=== PATIENT | male | born 1960 | race Caucasian/White ===

== ENCOUNTER 2019-08-23 08:33 | Day surgery (SDC) | payer BC, SELFPAY ==
[2019-08-23 09:01] VITALS: BP 127/97; PULSE 70; RESP 18; TEMP 36.9; O2SAT 97
--- NOTE | 2019-08-23 09:21 | ANES.PREANES ---
Pre-Anesthetic Assessment Pre-Anesthetic Assessment: Height/Weight: Height 1.75 m Weight 0 g Temp Pulse Resp BP Pulse Ox 98.4 F 70 18 127/97 97 08/23/19 09:01 08/23/19 09:01 08/23/19 09:01 08/23/19 09:01 08/23/19 09:01 Proposed Procedure: Operation Date: 08/23/19 10:30 Proposed Procedures p EGD 42760(Not Applicable) - Monico Dai MD Familial anesthetic complications: denies anesthesia complications Was Beta Loan taken within 24 hours: N/A Last intake: Intake Last Liquid Date 08/22/19 Last Liquid Time 18:00 Last Solid Date 08/22/19 Last Solid Time 18:00 Last Intake: 09:23 Social: Social History: No alcohol and No tobacco Exam: Pre-Anes Outpt Exam: alert, oriented x 3, clear to auscultation bilaterally and regular rate & rhythm Airway: Submandibular: WNL Cervical ROM: WNL MP: 2 Additional comments: intact dentition History/ROS: No significant complaints Pulmonary: Pulmonary: None reported CV/HEM: CV/HEM: HTN : : None reported Hepatic: Hepatic: None reported GI: GI: GERD and Hiatus hernia Comments: congtrolled well with meds Metabolic: Metabolic: None reported Musc/skel: Musc/skel: OA/DJD Neuropsych: Neuropsych: Anxiety Anesthetic Plan: ASA status: II Anesthesia: Anesthesia Evaluation Risk of > 500 ml blood loss (7ml/kg in children): No PFSH Anesthesia PFSH: Social History Smoking and tobacco status: never smoked Alcohol intake: current Alcohol intake frequency: holidays/special occasions only Household members: spouse Current occupational status: employed Data Anesthesia Cardiac Studies: No Data to Display
[2019-08-23] MEDS: sodium chloride 0.9% 1,000 ML 30 ML IV (09:23)
--- NOTE | 2019-08-23 10:58 | PM.HPUD ---
H&P update H&P Update: DATE OF SURGERY/PROCEDURE: 08/23/19 DATE H&P PERFORMED: 08/16/19 H&P UPDATE INFORMATION: H&P completed within last 30 days and No changes to prior documentation PLANNED PROCEDURE: Operation Date: 08/23/19 10:30 Proposed Procedures p EGD 15691(Not Applicable) - Monico Dai MD Full H&P Medications/Allergies: Current Medications: Current Medications Generic Name Dose Route Start Last Admin Trade Name Brannonq PRN Reason Stop Dose Admin Sodium Chloride 1,000 mls @ 30 ml s/hr 08/23/19 06:15 08/23/19 09:23 Sodium Chloride 0.9% IV 08/24/19 06:14 30 mls/hr .Q24H NATALIA Administration Perinent History: Medical/Surgical History: Medical History (Updated 08/16/19 @ 15:24 by Monico Dai MD) Diverticulosis (Acute) Gastroparesis (Acute) GERD (gastroesophageal reflux disease) (Chronic) Hiatal hernia (Acute) Hypertension (Acute) Internal hemorrhoids (Acute) Joint pain (Acute) Schatzki's ring (Acute) Family History: Family History (Updated 08/16/19 @ 11:00 by Kinjal Oneal LPN) Father Cancer esophageal Hypertension Grandfather Cancer brain Grandmother Cancer uterine Denies family history of Anesthesia complication Bleeding disorder Social History: Social History Smoking and tobacco status: never smoked Alcohol intake: current Alcohol intake frequency: holidays/special occasions only Household members: spouse Current occupational status: employed
[2019-08-23 11:15] VITALS: BP 121/76; PULSE 65; RESP 10; TEMP 36.9; O2SAT 95
--- NOTE | 2019-08-23 11:20 | ANE.PACU ---
 Inpatient post-anesthesia follow up: Airway intact: Yes Vital signs: Temperature 98.5 F Pulse Rate [Monito r] 65 Respiratory Rate 10 Blood Pressure [Le ft Arm] 121/76 Pulse Oximetry 95 Oxygen Delivery Me thod Nasal Cannula Oxygen Flow Rate 3 Fraction of Inspir ed Oxygen Hydration adequate: Yes Nausea and vomiting: No Pain level: Other Pain level: 0/10 Mental status: Baseline
[2019-08-23 11:27] VITALS: BP 123/68; PULSE 59; RESP 18; O2SAT 97
== END 2019-08-23 11:49 | disposition home or self-care (01) ==
PROVIDERS: Family Provider Nurse Practitioner Family; PCP Registered Nurse; Visit Provider Surgery
PROC: 0DJ08ZZ Inspection of Upper Intestinal Tract, Via Natural or Artificial Opening Endoscopic (ICD-10-PCS; CPT 43235; principal; 2019-08-23 10:30)
DX: K21.9 Gastro-esophageal reflux disease without esophagitis (principal); K29.30 Chronic superficial gastritis without bleeding; I10 Essential (primary) hypertension; Z82.49 Family history of ischemic heart disease and other diseases of the circulatory system; M19.90 Unspecified osteoarthritis, unspecified site
CPT/HCPCS: 43239; 88305; J2704; J7030

== ENCOUNTER 2019-11-20 08:23 | Outpatient (CLI) | payer OTHER, SELFPAY ==
--- NOTE | 2019-11-20 09:00 | CT_ITS ---
WS: [id number] CT LEFT FOOT, NONCONTRAST WITH 3-D. HISTORY: trauma foot Technique: All CT scans at [facility] use at least one of these dose optimization techniq ues: automated exposure control; mA and/or kV adjustment per patient size (includes targeted exams wh ere dose is matched to clinical indication); or iterative reconstruction. DLP: 630.67 mGy-cm. COMPARISON: None available. Very subtle area of increased density between the proximal first and second metatarsals. This could b e small avulsion fracture from the base of the second metatarsal which can be an indicator of underly ing Lisfranc injury indicating injury to the Lisfranc ligament. There is no significant widening appr eciated by CT. No additional fractures are evident. There is mild soft tissue edema. Distal tibia is intact. Talus and calcaneus are normal. Very slight widening of the 3-D imaging betwe en the proximal first and second metatarsals is suspected. CT/CT foot LT wo con* [id number] IMPRESSION: 1. Suspect tiny avulsion fracture between the proximal first and second metata rsals. This may indicate an avulsion fracture related to a Lisfranc injury/spra in. 2. Suggest follow-up with orthopedics/podiatry. Stress radiographic views of t he LEFT foot may be indicated.
== END 2019-11-20 08:24 | disposition home or self-care (01) ==
LOC: RADWPI 08:25
PROVIDERS: Family Provider Nurse Practitioner Family; PCP Registered Nurse; Visit Provider Nurse Practitioner Family
DX: M79.672 Pain in left foot (principal)
CPT/HCPCS: 73700

== ENCOUNTER → 2019-11-21 09:54 | Outpatient (BNVA) | payer OTHER, SELFPAY | PROVIDERS: Family Provider Nurse Practitioner Family; PCP Registered Nurse; Referring Provider Nurse Practitioner Family; Visit Provider Specialist | DX: S93.622A Sprain of tarsometatarsal ligament of left foot, initial encounter (principal); W20.8XXA Other cause of strike by thrown, projected or falling object, initial encounter | CPT/HCPCS: 73630 ==

== ENCOUNTER 2019-11-21 12:23 | Outpatient (CLI) | payer OTHER, SELFPAY | END 2019-11-21 12:24 | disposition home or self-care (01) | LOC: SPT 12:27 | PROVIDERS: Family Provider Nurse Practitioner Family; PCP Registered Nurse; Visit Provider Specialist | DX: Z46.89 Encounter for fitting and adjustment of other specified devices (principal); S93.325D Dislocation of tarsometatarsal joint of left foot, subsequent encounter; X58.XXXD Exposure to other specified factors, subsequent encounter | CPT/HCPCS: L4361 ==

== ENCOUNTER → 2019-12-10 08:55 | Outpatient (BNVA) | payer OTHER, SELFPAY | PROVIDERS: Family Provider Nurse Practitioner Family; PCP Registered Nurse; Visit Provider Specialist | DX: T14.8XXA Other injury of unspecified body region, initial encounter (principal) | CPT/HCPCS: 73630 ==

== ENCOUNTER → 2020-01-28 14:52 | Outpatient (BNVA) | payer OTHER, SELFPAY | PROVIDERS: Family Provider Nurse Practitioner Family; PCP Registered Nurse; Visit Provider Specialist | DX: T14.8XXA Other injury of unspecified body region, initial encounter (principal); S93.622A Sprain of tarsometatarsal ligament of left foot, initial encounter; X58.XXXA Exposure to other specified factors, initial encounter | CPT/HCPCS: 73630 ==

== ENCOUNTER 2020-07-22 13:19 | Outpatient (CLI) | payer BC, SELFPAY ==
--- NOTE | 2020-07-22 13:24 | XR_ITS ---
WS: [id number] RIGHT HAND: 2 VIEW(S) TECHNIQUE: PA and lateral. HISTORY: M19.049 - Primary osteoarthritis, unspecified hand COMPARISON: None available. No acute fracture or dislocation. Mild interphalangeal joint space narrowing. No significant soft tissue prominence. No erosions. XR/XR hand RT 2V [id number] IMPRESSION: Minimal narrowing of the interphalangeal joints. Most likely mild osteoarthriti s.
--- NOTE | 2020-07-22 13:24 | XR_ITS ---
WS: [id number] LEFT HAND: 2 VIEW(S) TECHNIQUE: PA and lateral. HISTORY: M19.049 - Primary osteoarthritis, unspecified hand COMPARISON: None available. No acute fracture or dislocation. Mild narrowing of the interphalangeal joint spaces. No erosions. No soft tissue edema or swelling. No subluxation. XR/XR hand LT 2V [id number] IMPRESSION: Mild osteoarthritis.
== END 2020-07-22 13:20 | disposition home or self-care (01) ==
LOC: RAD 13:22
PROVIDERS: PCP Registered Nurse; Visit Provider Registered Nurse
DX: M19.042 Primary osteoarthritis, left hand (principal)
CPT/HCPCS: 73120

== ENCOUNTER → 2020-07-29 11:22 | Outpatient (BNVA) | payer BC, SELFPAY | PROVIDERS: PCP Registered Nurse; Visit Provider Specialist | DX: R20.0 Anesthesia of skin (principal); G56.02 Carpal tunnel syndrome, left upper limb | CPT/HCPCS: 95910 ==

== ENCOUNTER → 2020-08-13 09:09 | Outpatient (BNVA) | payer BC, SELFPAY | PROVIDERS: PCP Registered Nurse; Visit Provider Registered Nurse | DX: Z00.00 Encounter for general adult medical examination without abnormal findings (principal); I10 Essential (primary) hypertension | CPT/HCPCS: 80048; 80061 ==

== ENCOUNTER → 2020-10-20 09:02 | Outpatient (BNVA) | payer BC, SELFPAY | PROVIDERS: PCP Registered Nurse; Visit Provider Registered Nurse | DX: E78.5 Hyperlipidemia, unspecified (principal) | CPT/HCPCS: 80061 ==

== ENCOUNTER → 2020-12-31 08:23 | Outpatient (BNVA) | payer BC, SELFPAY | PROVIDERS: PCP Registered Nurse; Referring Provider Registered Nurse; Visit Provider Specialist | DX: M77.8 Other enthesopathies, not elsewhere classified (principal) | CPT/HCPCS: 73080 ==

== ENCOUNTER → 2021-11-11 10:47 | Outpatient (BNVA) | payer OTHER, SELFPAY | PROVIDERS: PCP Registered Nurse; Visit Provider Registered Nurse | DX: Z12.5 Encounter for screening for malignant neoplasm of prostate (principal); Z13.6 Encounter for screening for cardiovascular disorders | CPT/HCPCS: 80053; 80061; 85025; G0103 ==

== ENCOUNTER → 2022-02-05 08:36 | Outpatient (BNVA) | payer OTHER, SELFPAY | PROVIDERS: PCP Registered Nurse; Visit Provider Registered Nurse | DX: E78.5 Hyperlipidemia, unspecified (principal) | CPT/HCPCS: 80061 ==

== ENCOUNTER 2022-06-28 16:03 | Outpatient (CLI) | payer OTHER, SELFPAY ==
--- NOTE | 2022-06-28 17:21 | XR_ITS ---
WS: [id number] Exam: XR shoulder LT min 2V* [id number] Date/Time of Exam: 06/28/2022 5:21 PM Reason For Exam: M25.512 - Pain in left shoulder No fracture or dislocation. Soft tissue XR/XR shoulder LT min 2V* [id number] IMPRESSION: 1. Unremarkable left shoulder.
== END 2022-06-28 16:04 | disposition home or self-care (01) ==
PROVIDERS: PCP Registered Nurse; Visit Provider Registered Nurse
DX: M25.512 Pain in left shoulder (principal)
CPT/HCPCS: 73030

== ENCOUNTER 2022-08-25 11:36 | Outpatient (CLI) | payer OTHER, SELFPAY ==
--- NOTE | 2022-08-25 14:30 | MR_ITS ---
WS: [id number] MRI LEFT SHOULDER HISTORY: M25.512 - Pain in left shoulder COMPARISON: LEFT shoulder 06/28/2022 TECHNIQUE: Multiplanar sequences of the shoulder joint are submitted. Mild AC joint arthritis. There is a small amount of edema around the distal clavicle and through the AC ligament. No acute acute fracture. No significant amount of fluid in the subacromial or subdeltoid bursa. No os acromion. Biceps tendon in good position. Small insertion site tear of the supraspinatus tendon without retraction. There is mild tendinopathy in the more proximal supraspinatus tendon. No additional tears. No labral tears are identified. There is mild atrophy of the subscapularis muscle but no tendon tear or retraction. MR/MR shoulder LT wo con* [id number] IMPRESSION: 1. Mild AC joint arthropathy. 2. Small insertion site tear supraspinatus tendon without retraction. 3. Mild tendinopathy distal supraspinatus tendon. 4. Mild atrophy of the subscapularis muscle but no tendon tear identified.
== END 2022-08-25 11:37 | disposition home or self-care (01) ==
PROVIDERS: PCP Registered Nurse; Visit Provider Registered Nurse
DX: M12.812 Other specific arthropathies, not elsewhere classified, left shoulder (principal); M75.102 Unspecified rotator cuff tear or rupture of left shoulder, not specified as traumatic
CPT/HCPCS: 73221

== ENCOUNTER → 2022-09-01 13:11 | Outpatient (BNVA) | payer OTHER, SELFPAY | PROVIDERS: PCP Registered Nurse; Referring Provider Registered Nurse; Visit Provider Specialist | DX: M75.92 Shoulder lesion, unspecified, left shoulder (principal); M19.012 Primary osteoarthritis, left shoulder; S46.012A Strain of muscle(s) and tendon(s) of the rotator cuff of left shoulder, initial encounter; X50.9XXA Other and unspecified overexertion or strenuous movements or postures, initial encounter | CPT/HCPCS: 73030 ==

== ENCOUNTER → 2023-03-23 08:34 | Outpatient (BNVA) | payer OTHER, SELFPAY | PROVIDERS: PCP Registered Nurse; Visit Provider Registered Nurse | DX: I10 Essential (primary) hypertension (principal); E78.5 Hyperlipidemia, unspecified; Z12.5 Encounter for screening for malignant neoplasm of prostate | CPT/HCPCS: 80053; 80061; 85025; G0103 ==

== ENCOUNTER 2023-05-19 07:45 | Day surgery (SDC) | payer OTHER, SELFPAY ==
[2023-05-17 10:11] VITALS: BMI 25.8
--- NOTE | 2023-05-19 06:25 | P.HP_ITS ---
Same Day Surgery H&P Indication for Procedure/HPI DATE OF PROCEDURE: May 19, 2023 CHIEF COMPLAINT/INDICATIONFOR SURGICAL PROCEDURE: need for screening colonoscopy PREOP DIAGNOSIS: encounter for screening colonoscopy PLANNED PROCEDURE: Operation Date: 05/19/23 09:00 Proposed Procedures p Colonoscopy 33678,Z12.11(Not Applicable) - Iain Miller MD Medications/Allergies* Home Medications Medication Instructions Recorded Confirmed Type aspirin 81 mg chewable tablet 81 mg PO DAILY 08/16/19 05/17/23 History xgctciyc-cgdhlspv-xhhhi acid 400 1 tab PO DAILY 08/16/19 05/17/23 History mcg-vit K 20 mcg-lycop 300 mcg tablet (One-A-Day Men's Multivitamin) Allergies/Adverse Reactions Allergy/AdvReac Type Severity Reaction Status Date / Time lovastatin Allergy ADR-Cramping Verified 04/05/23 07:53 of the Muscles Pertinent History/Comorbid Conditions* Medical History (Updated 04/05/23 @ 08:10 by Iain Miller MD) Diverticulosis Esophagitis GERD (gastroesophageal reflux disease) Hypertension Internal hemorrhoids Surgical History (Updated 09/07/19 @ 11:32 by Monico Dai MD) History of esophagogastroduodenoscopy (EGD) 2017 08/2019: esophagitis, path: chronic gastritis History of rectal surgery Hx of cholecystectomy Hx of circumcision S/P colonoscopy 2019 repeat in 5 years Family History (Updated 04/05/23 @ 07:58 by ONELIA Andrews) Cancer Father esophageal Grandfather brain Grandmother uterine Family/Other Colon cancer- Aunt Hypertension Father Denies family history of Anesthesia complication Bleeding disorder Social History Smoking and tobacco status: never smoked Alcohol intake: current Alcohol intake frequency: holidays/special occasions only Substance/Drug Use: never Adopted: No Caregiver/support person: No Lives independently: Yes Household members: spouse Housing: House Marital status: Highest education level completed: High School Graduate Current occupational status: employed Current occupational exposures/hazards: No Pets and animals: No Leisure activites: hunting and fishing Sexually active: Yes Do you think of yourself as: Straight/Heterosexual Current gender identity: Female Hanna/Presybeterian: Uatsdin Special hanna needs: No Agree to transfusion: No Financial difficulty paying for basics: Decline to Answer Pertinent Exam Findings alert, oriented x 3, clear to auscultation bilaterally and regular rate & rhythm Recommendations Surgery/Procedure today Coding Level of Care Code Acute Code for Chg Fwd Diagnoses
[2023-05-19 08:01] VITALS: BP 129/87; PULSE 75; RESP 18; TEMP 36.6; O2SAT 97
[2023-05-19] MEDS: sodium chloride 0.9% 1,000 ML 30 ML IV (08:04)
--- NOTE | 2023-05-19 08:10 | P.ANESASSM_ITS ---
Pre-Anesthetic Assessment Height/Weight: Height 1.75 m Weight 79.379 kg Temp Pulse Resp BP Pulse Ox O2 Del Method 97.9 F 75 18 129/87 97 Room Air 05/19/23 08:01 05/19/23 08:01 05/19/23 08:01 05/19/23 08:01 05/19/23 08:01 05/19/23 08:01 Preop Diagnosis: encounter for screening colonoscopy Operation Date: 05/19/23 09:00 Proposed Procedures p Colonoscopy 44079,Z12.11(Not Applicable) - Iain Miller MD Was Beta Loan taken within 24 hours: N/A Was Clonidine taken within 24 hours: N/A Last intake: Intake Last Liquid Date 05/18/23 Last Liquid Time 21:00 Last Solid Date 05/17/23 Last Solid Time 17:00 Exam alert and oriented x 3 Airway Submandibular: within normal limits Cervical ROM: within normal limits Mallampati: Class II Dentition: full History/ROS No significant history except as noted Pulmonary Sleep Apnea CV/HEM Hypertension None reported Hepatic None reported GI Gastroesophageal Reflux Disease Metabolic Hyperlipidemia [facility] [place] None reported Neuropsych None reported Anesthetic Plan ASA status: 2 Anesthesia: Anesthesia Evaluation and MAC Risk of > 500 ml blood loss (7ml/kg in children): No Medications/Allergies Home Medications Medication Instructions Recorded Confirmed Last Taken Type aspirin 81 mg chewable tablet 81 mg PO DAILY 08/16/19 05/17/23 05/13/23 History xtmyzoxn-pnevynbe-vlizw acid 400 1 tab PO DAILY 08/16/19 05/17/23 05/17/23 History mcg-vit K 20 mcg-lycop 300 mcg tablet (One-A-Day Men's Multivitamin) fluticasone propionate 50 1 spray intranasal DAILY #16 grams 10/07/22 05/17/23 05/14/23 Rx mcg/actuation nasal spray,suspension (Flonase Allergy Relief) acyclovir 800 mg tablet 800 mg PO BID PRN recurrent mouth 11/22/22 05/17/23 Unknown Rx ulcers 15 days #30 tabs olmesartan 20 mg tablet See Rx Instructions .Route 05/02/23 05/17/23 05/17/23 Rx .COMPLEX #90 tabs pantoprazole 40 mg tablet,delayed See Rx Instructions .Route 05/02/23 05/17/23 05/17/23 Rx release .COMPLEX #90 tabs sertraline 50 mg tablet See Rx Instructions .Route 05/02/23 05/17/23 05/17/23 Rx .COMPLEX #90 tabs Allergies Allergy/AdvReac Type Severity Reaction Status Date / Time lovastatin Allergy ADR-Cramping Verified 05/19/23 07:54 of the Muscles Current Medications Generic Name Dose Route Start Last Admin Trade Name Freq PRN Reason Stop Dose Admin Sodium Chloride 1,000 mls @ 30 mls/hr 05/19/23 08:00 05/19/23 08:04 Sodium Chloride 0.9% IV 05/20/23 07:59 30 mls/hr .Q24H NATALIA Administration PFSH Anesthesia Medical History Diverticulosis Esophagitis GERD (gastroesophageal reflux disease) Hypertension Internal hemorrhoids Surgical History History of esophagogastroduodenoscopy (EGD) 2017 08/2019: esophagitis, path: chronic gastritis History of rectal surgery Hx of cholecystectomy Hx of circumcision S/P colonoscopy 2019 repeat in 5 years Family History (Updated 04/05/23 @ 07:[address]) Father Cancer esophageal Hypertension Grandfather Cancer brain Grandmother Cancer uterine Family/Other Cancer Colon cancer- Aunt Denies family history of Anesthesia complication Bleeding disorder Social History Smoking and tobacco status: never smoked Alcohol intake: current Alcohol intake frequency: holidays/special occasions only Substance/Drug Use: never Adopted: No Caregiver/support person: No Lives independently: Yes Household members: spouse Housing: House Marital status: Highest education level completed: High School Graduate Current occupational status: employed Current occupational exposures/hazards: No Pets and animals: No Leisure activites: hunting and fishing Sexually active: Yes Do you think of yourself as: Straight/Heterosexual Current gender identity: Female Hanna/Baptist: Caodaism Special hanna needs: No Agree to transfusion: No Financial difficulty paying for basics: Decline to Answer Data Anesthesia Cardiac Studies: No Data to Display
[2023-05-19 09:24] VITALS: BP 86/64; PULSE 63; RESP 16; O2SAT 95
[2023-05-19 09:50] VITALS: BP 114/84; PULSE 51; RESP 16; O2SAT 94
--- NOTE | 2023-05-19 10:10 | ANE.PACU2 ---
Inpatient post-anesthesia follow up: Airway intact: Yes Vital signs: Temperature 97.9 F Pulse Rate 51 Respiratory Rate 16 Blood Pressure 114/84 Pulse Oximetry 94 Oxygen Delivery Me thod Room Air Oxygen Flow Rate 2 Fraction of Inspir ed Oxygen Hydration adequate: Yes Nausea and vomiting: No Pain level: 1 Mental status: Baseline
== END 2023-05-19 10:20 | disposition home or self-care (01) ==
PROVIDERS: PCP Registered Nurse; Visit Provider Surgery
PROC: 0DJD8ZZ Inspection of Lower Intestinal Tract, Via Natural or Artificial Opening Endoscopic (ICD-10-PCS; CPT 45378; principal; 2023-05-19 09:00)
DX: Z12.11 Encounter for screening for malignant neoplasm of colon (principal); D12.0 Benign neoplasm of cecum; K57.30 Diverticulosis of large intestine without perforation or abscess without bleeding; Z79.82 Long term (current) use of aspirin; I10 Essential (primary) hypertension; G47.30 Sleep apnea, unspecified; K21.9 Gastro-esophageal reflux disease without esophagitis; E78.5 Hyperlipidemia, unspecified
CPT/HCPCS: 45385; 88305; J2704; J7030

== ENCOUNTER 2023-06-27 16:00 | Outpatient (CLI) | payer OTHER, SELFPAY | END 2023-06-27 16:01 | disposition home or self-care (01) | LOC: SLEEP 06-28 11:30 | PROVIDERS: PCP Registered Nurse; Visit Provider Registered Nurse | DX: G47.33 Obstructive sleep apnea (adult) (pediatric) (principal) | CPT/HCPCS: G0399 ==

== ENCOUNTER 2023-09-09 07:45 | Emergency (ER) | payer OTHER, SELFPAY ==
[2023-09-09 07:46] VITALS: BP 159/93; PULSE 83; RESP 15; TEMP 36.7; O2SAT 98
--- NOTE | 2023-09-09 07:50 | XR_ITS ---
WS: [id number] XR lumbar spine 2-3V* [id number] REASON FOR EXAM: low back pain FINDINGS: Mild rotatory scoliosis convex left. No significant compression deformity of the lumbar vertebrae. Disc spaces are intact and relatively well preserved. Mild anterolisthesis of L4 on L5. IMPRESSION: No acute abnormality. Minimal degenerative spondylosis.
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
[2023-09-09] MEDS: naproxen 500 mg Tablet PO (08:00)
[2023-09-09 08:42] VITALS: BP 127/88; PULSE 77; O2SAT 97
== END 2023-09-09 08:43 | disposition home or self-care (01) ==
PROVIDERS: Emergency Provider Emergency Medicine; PCP Registered Nurse
DX: S39.012A Strain of muscle, fascia and tendon of lower back, initial encounter (principal); Z79.82 Long term (current) use of aspirin; I10 Essential (primary) hypertension; V89.2XXA Person injured in unspecified motor-vehicle accident, traffic, initial encounter
CPT/HCPCS: 72100; 99283

== ENCOUNTER 2023-09-23 16:12 | Outpatient (CLI) | payer OTHER, SELFPAY ==
--- NOTE | 2023-09-23 16:45 | MR_ITS ---
WS: [id number] MRI LUMBAR SPINE NONCONTRAST HISTORY: M54.16 - Radiculopathy, lumbar region COMPARISON: None available. TECHNIQUE: Sagittal and axial multisequence imaging is submitted. Moderate cervical spondylosis. There is narrowing of the central canal in the cervical spine at C3-4, C4-5 and C5-6. Disc bases are narrowed throughout the thoracic spine. No cord compression. Mild ante rior wedging of T7, T8 and T9. No marrow edema to suggest acute fractures. Normal lumbar alignment. Disc spaces are narrowed and desiccated. There is very slight anterior wedgi ng of L1. No fracture. Conus terminates normally at L1-2 disc level. L1-L2: No stenosis. Mild facet arthritis. L2-L3: Mild bilateral facet joint arthritis and disc bulging. No stenosis. L3-L4: Mild annular disc bulging and osteophytic ridging. Mild bilateral ligamentum flavum and facet joint arthritis. There is mild bilateral foraminal narrowing due to combination of osteophytes, disc and facet disease. Mild central and bilateral subarticular recess encroachment. L4-L5: Diffuse annular disc bulging encroaching upon the ventral thecal sac. There is asymmetric encr oachment greatest to the RIGHT. Marked ligamentum flavum and facet arthritis. Fluid in the facet join ts bilaterally. Moderate central, bilateral subarticular recess and mild foraminal stenosis. Slightly greater disc encroachment upon the traversing RIGHT L5 nerve root. L5-S1: Mild annular disc bulging and facet joint arthritis. No high-grade stenosis. There is a small 8 mm facet joint cyst on the LEFT. LEFT renal pelvis is very slightly dilated. This may be due to an extrarenal pelvis but this was not present on the study of 2017 CT. Exophytic mass needs to be excluded. IMPRESSION: 1. L4-5: Moderate central, bilateral subarticular recess and mild foraminal stenosis. The most signi ficant nerve root encroachment is on the traversing RIGHT L5 nerve root. 2. Advanced facet joint arthritis at L4-5 with fluid in the facet joints and edema. 3. L3-4: Mild central and bilateral subarticular recess encroachment. 4. A small portion of the LEFT kidney is included. There is an abnormal configuration of the superio r pole of the kidney which needs to be further evaluated. This may be an extrarenal pelvis but was no t present on the study from 2017. Recommend ultrasound evaluation of the LEFT kidney.
== END 2023-09-23 16:13 | disposition home or self-care (01) ==
LOC: RAD 16:12
PROVIDERS: PCP Registered Nurse; Visit Provider Registered Nurse
DX: M47.26 Other spondylosis with radiculopathy, lumbar region (principal); M48.061 Spinal stenosis, lumbar region without neurogenic claudication; R93.422 Abnormal radiologic findings on diagnostic imaging of left kidney
CPT/HCPCS: 72148

== ENCOUNTER 2023-10-06 13:02 | Outpatient (CLI) | payer OTHER, SELFPAY ==
--- NOTE | 2023-10-06 13:45 | US_ITS ---
WS: [id number] RENAL ULTRASOUND HISTORY: R39.9 - Unspecified symptoms and signs involving the madelyn... COMPARISON: MRI 09/23/2023 TECHNIQUE: 2-D and color Doppler imaging of the kidney submitted. Right kidney: 10.9 cm x 5.6 cm x 5.5 cm. Cortex: 1.2 cm Normal echogenicity with no hydronephrosis or mass. Left kidney: 11.6 cm x 6.1 cm x 5.8 cm. Cortex: 1.3 cm Normal echogenicity with no hydronephrosis or mass. The abnormal configuration of the LEFT kidney is not identified by ultrasound. There is no extrarenal pelvis or mass. Kidney is well visualized. Aorta: Normal. Urinary Bladder: Normal distention. IMPRESSION: 1. No LEFT renal abnormality is identified by ultrasound. The kidney is well visualized. There is no mass. The abnormality seen on the recent MRI may've been adjacent bowel. 2. Negative RIGHT kidney.
== END 2023-10-06 13:03 | disposition home or self-care (01) ==
LOC: RAD 13:02
PROVIDERS: PCP Registered Nurse; Visit Provider Registered Nurse
DX: R39.9 Unspecified symptoms and signs involving the genitourinary system (principal)
CPT/HCPCS: 76770

== ENCOUNTER → 2023-10-20 12:55 | Outpatient (BNVA) | payer OTHER, SELFPAY | PROVIDERS: PCP Registered Nurse; Referring Provider Registered Nurse; Visit Provider Orthopaedic Surgery | DX: M54.16 Radiculopathy, lumbar region (principal); M48.062 Spinal stenosis, lumbar region with neurogenic claudication | CPT/HCPCS: 72110 ==

== ENCOUNTER 2023-12-02 11:43 | Outpatient (CLI) | payer OTHER, SELFPAY ==
--- NOTE | 2023-12-02 13:45 | MR_ITS ---
WS: [id number] MRI CERVICAL SPINE NONCONTRAST HISTORY: Chronic since 2 months ago. Neck pain and LEFT muscle stiffness. COMPARISON: None available. Technique: Multiplanar, multisequence noncontrast imaging of the cervical spine. Mild RIGHT curvature cervical spine. Less than 2 mm retrolisthesis of C3 and C5. Disc spaces are all narrowed. No fracture or acute marrow edema. Signal within the cervical cord is normal. Visualized posterior fossa is unremarkable. Craniocervical junction, C1 and C2 relationship, odontoid process and soft tissues are normal. C2-C3: Normal. C3-C4: Mild annular disc bulging and osteophytic ridging. Mild disc and osteophyte encroachment upon the ventral thecal sac. Moderate bilateral foraminal stenosis. Bilateral facet joint arthritis, LEFT greater than RIGHT. There is mild increased T2 signal in the LEFT facets at the C3-4 and C4-5 level w ith a small amount of edema. C4-C5: Mild annular disc bulging and osteophytic ridging contacting the ventral thecal sac. Bilateral facet joint arthritis, LEFT greater than RIGHT. Increased T2 signal in the LEFT facet joints. There is also some edema posterior to the facet joint. Mild central and bilateral foraminal stenosis. C5-C6: Mild osteophytic ridging with annular disc bulging. Moderate central and bilateral foraminal s tenosis due to disc and osteophyte disease. C6-C7: Mild annular disc bulging and osteophytic ridging. Moderate bilateral foraminal stenosis. Mild facet arthritis. C7-T1: Normal. Cystic mass in the expected location of the RIGHT thyroid measures 9 mm. IMPRESSION: 1. Multilevel degenerative disc and facet disease. 2. Increased T2 signal in the LEFT facet joints and the periarticular soft tissues at C3-4 and C4-5. This may be posttraumatic and related to the recent injury or due to synovitis and facet joint arthr opathy. No fractures are identified or dislocation. 3. C3-4 : Moderate bilateral foraminal stenosis and mild central stenosis. 4. C4-5: Mild central and bilateral foraminal stenosis. 5. C5-6: Moderate central and bilateral foraminal stenosis due to disc and osteophyte disease. 6. C6-7: Moderate bilateral foraminal stenosis.
== END 2023-12-02 11:44 | disposition home or self-care (01) ==
LOC: RAD 11:43
PROVIDERS: PCP Registered Nurse; Visit Provider Nurse Practitioner Family
DX: S16.1XXA Strain of muscle, fascia and tendon at neck level, initial encounter (principal); V89.2XXA Person injured in unspecified motor-vehicle accident, traffic, initial encounter; M47.812 Spondylosis without myelopathy or radiculopathy, cervical region; M48.02 Spinal stenosis, cervical region
CPT/HCPCS: 72141

== ENCOUNTER → 2023-12-06 10:39 | Outpatient (BNVA) | payer OTHER, SELFPAY | PROVIDERS: PCP Registered Nurse; Visit Provider Nurse Practitioner Family | DX: E04.1 Nontoxic single thyroid nodule (principal) | CPT/HCPCS: 84439; 84443 ==

== ENCOUNTER 2023-12-14 08:07 | Outpatient (CLI) | payer OTHER, SELFPAY ==
--- NOTE | 2023-12-14 09:15 | US_ITS ---
WS: [id number] ULTRASOUND THYROID TECHNIQUE: Ultrasound of the thyroid. CLINICAL INFORMATION: E04.1 - Nontoxic single thyroid nodule COMPARISON: None. FINDINGS: Thyroid: Right and left thyroid lobes are normal in size and echotexture. Complex heterogeneous cystic and solid RIGHT mid thyroid nodule measuring 1.2 x 1.1 x 1.6 cm No LEFT thyroid nodules. Right thyroid lobe: 1.9 cm x 2.0 cm x 2.2 cm Left thyroid lobe: 3.9 cm x 1.5 cm x 1.4 cm. Isthmus: 0.2 mm. Cervical lymphadenopathy: None. US/US thyroid [id number] IMPRESSION: Complex RIGHT mid thyroid nodule measuring 1.2 x 1.1 x 1.6 cm Recommend 12-month follow-up. TIRADS Category 3: Mildly suspicious (total points = 3) FNA if e2.5 cm Follow if e1.5 cm (at 1, 3, 5 years
== END 2023-12-14 08:08 | disposition home or self-care (01) ==
LOC: RAD 08:08
PROVIDERS: PCP Registered Nurse; Visit Provider Nurse Practitioner Family
DX: E04.1 Nontoxic single thyroid nodule (principal)
CPT/HCPCS: 76536

== ENCOUNTER → 2024-03-26 11:48 | Outpatient (BNVA) | payer OTHER, SELFPAY | PROVIDERS: PCP Registered Nurse; Visit Provider Registered Nurse | DX: E78.5 Hyperlipidemia, unspecified (principal) | CPT/HCPCS: 80061 ==

== ENCOUNTER → 2024-04-12 14:59 | Outpatient (BNVA) | payer OTHER, SELFPAY | PROVIDERS: PCP Registered Nurse; Visit Provider Registered Nurse | DX: L98.9 Disorder of the skin and subcutaneous tissue, unspecified (principal) | CPT/HCPCS: 88305 ==

== ENCOUNTER 2024-06-05 10:59 | Outpatient (CLI) | payer OTHER, SELFPAY ==
--- NOTE | 2024-06-05 11:06 | XRR_ITS ---
PROCEDURE INFORMATION: Exam: XR Left Shoulder Exam date and time: 06/05/2024 11:15 AM Age: 63 years old Clinical indication: Pain; Shoulder; Bilateral; Additional info: Impingement syndrome of shoulder TECHNIQUE: Imaging protocol: Radiologic exam of the left shoulder. Views: 2 or more views. COMPARISON: MR cervical spin wo con* [id number] 12/02/2023 11:55 AM FINDINGS: Bones/joints: No acute fracture or malalignment. No worrisome lytic or blastic lesion. No cortical erosion or periosteal reaction. Mild glenohumeral joint space narrowing and osteophyte formation. Soft tissues: Normal. XR/XR shoulder LT min 2V* [id number] IMPRESSION: 1. No acute findings. 2. Mild glenohumeral joint osteoarthritis.
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
== END 2024-06-05 11:00 | disposition home or self-care (01) ==
LOC: RAD 11:04
PROVIDERS: PCP Registered Nurse
DX: M75.41 Impingement syndrome of right shoulder (principal); M75.42 Impingement syndrome of left shoulder
CPT/HCPCS: 73030

== ENCOUNTER 2024-07-19 15:53 | Outpatient (CLI) | payer OTHER, SELFPAY ==
--- NOTE | 2024-07-19 15:57 | US_ITS ---
WS: [id number] THYROID ULTRASOUND HISTORY: E04.1 - Nontoxic single thyroid nodule COMPARISON: 12/14/2023 Right lobe: 2.0 cm x 2.1 cm x 3.5 cm (w x ap x l). Volume: 6.9 cm3. Normal sized gland. Reidentified is the isoechoic nodule with hypoechoic border in the mid posterior thyroid measuring 1.4 x 1.0 x 1.8 cm. Thyroid nodule has not significantly increased in size or boyce ed since the prior exam. There is mild peripheral increased vascularity. There are few cystic areas. No punctate calcifications. Left lobe: 1.7 cm x 1.4 cm x 4.1 cm (w x ap x l). Volume: 4.4 cm3. Normal size and echotexture. No significant or dominant nodules are present. Isthmus: 0.3 cm. US/US thyroid [id number] IMPRESSION: TI-RADS 3; mid RIGHT thyroid nodule. Recommendation using TI-RADS criteria is y early ultrasound follow-up evaluations at 1, 3 and 5 years.
== END 2024-07-19 15:54 | disposition home or self-care (01) ==
LOC: RAD 15:55
PROVIDERS: PCP Registered Nurse; Visit Provider Registered Nurse
DX: E04.1 Nontoxic single thyroid nodule (principal)
CPT/HCPCS: 76536

== ENCOUNTER → 2024-09-03 10:34 | Outpatient (BNVA) | payer OTHER, SELFPAY | PROVIDERS: PCP Registered Nurse; Visit Provider Registered Nurse | DX: Z13.6 Encounter for screening for cardiovascular disorders (principal); Z13.1 Encounter for screening for diabetes mellitus; Z12.5 Encounter for screening for malignant neoplasm of prostate | CPT/HCPCS: 80053; 80061; 83036; G0103 ==

== ENCOUNTER 2025-01-15 08:53 | Day surgery (SDC) | payer OTHER, SELFPAY ==
[2025-01-15 09:18] VITALS: BP 127/94; PULSE 52; RESP 16; TEMP 36.1; O2SAT 98
[2025-01-15] MEDS: sodium chloride 0.9% 1,000 ML 15 ML IV (09:19)
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
--- NOTE | 2025-01-15 09:47 | W.PM.OPSFHP ---
Same Day Surgery H&P Indication for Procedure/HPI DATE OF PROCEDURE: January 15, 2025 CHIEF COMPLAINT/INDICATIONFOR SURGICAL PROCEDURE: GERD heartburn PREOP DIAGNOSIS: GERD PLANNED PROCEDURE: Operation Date: 01/15/25 10:15 Proposed Procedures p EGD 05741, K21.9(Not Applicable) - Tristan Jesus MD Medications/Allergies* Home Medications ?Medication ?Instructions ?Recorded ?Confirmed ?Type aspirin 81 mg chewable tablet 81 mg PO DAILY 08/16/19 01/09/25 History fhpfxglm-inwrlndm-rcvvy acid 400 1 tab PO DAILY 08/16/19 01/09/25 History mcg-vit K 20 mcg-lycop 300 mcg tablet (One-A-Day Men's Multivitamin) celecoxib 50 mg capsule 50 mg PO BID 01/09/25 01/09/25 History colesevelam 625 mg tablet 1,250 mg PO DAILY 01/09/25 01/09/25 History fluticasone propionate 50 1 spray intranasal DAILY PRN 01/09/25 01/09/25 History mcg/actuation nasal Allergy Symptoms spray,suspension (Flonase Allergy Relief) metoprolol succinate 25 mg 25 mg PO DAILY 01/09/25 01/09/25 History tablet,extended release 24 hr sertraline 50 mg tablet 50 mg PO DAILY 01/09/25 01/09/25 History Allergies/Adverse Reactions Allergy/AdvReac Type Severity Reaction Status Date / Time lovastatin Allergy ADR-Cramping Verified 12/10/24 09:35 of the Muscles Current Medications: Generic Name Dose Route Start Last Admin Trade Name Freq PRN Reason Stop Dose Admin Sodium Chloride 1,000 mls @ 15 mls/hr 01/15/25 08:59 01/15/25 09:19 Sodium Chloride 0.9% IV 01/16/25 08:58 15 mls/hr .Q24H PRN Administration COLONOSCOPY FLUIDS Pertinent History/Comorbid Conditions* Medical History (Updated 12/14/23 @ 14:56 by PATRICIO Doherty) Esophagitis Hypertension GERD (gastroesophageal reflux disease) Diverticulosis Internal hemorrhoids Surgical History (Updated 09/07/19 @ 11:32 by Monico Dai MD) S/P colonoscopy 2019 repeat in 5 years History of esophagogastroduodenoscopy (EGD) 08/2019: esophagitis, path: chronic gastritis Hx of circumcision History of rectal surgery Hx of cholecystectomy Family History (Updated 04/05/23 @ 07:58 by ONELIA Andrews) Cancer Father esophageal Grandfather brain Grandmother uterine Family/Other Colon cancer- Aunt Hypertension Father Denies family history of Anesthesia complication Bleeding disorder Social History Alcohol intake: current Alcohol intake frequency: holidays/special occasions only Substance/Drug Use: never Adopted: No Caregiver/support person: No Lives independently: Yes Household members: spouse Housing: House Marital status: Highest education level completed: High School Graduate Current occupational status: employed Current occupational exposures/hazards: No Pets and animals: No Leisure activites: hunting and fishing Sexually active: Yes Do you think of yourself as: Straight/Heterosexual Current gender identity: Female Hanna/Advent: Buddhism Special hanna needs: No Agree to transfusion: No Pertinent Exam Findings alert, oriented x 3, clear to auscultation bilaterally, regular rate & rhythm and procedure specific exam findings abdomen soft, nt, nd Recommendations Risks and benefits of procedure reviewed Surgery/Procedure today Coding Level of Care Code Acute Code for Mario Vines
[2025-01-15 10:07] VITALS: BP 103/66; PULSE 70; RESP 18; TEMP 36.1; O2SAT 93
[2025-01-15 10:32] VITALS: BP 112/70; PULSE 68; RESP 16; O2SAT 95
--- NOTE | 2025-01-15 10:38 | ANE.PACU2 ---
Inpatient post-anesthesia follow up: Airway intact: Yes Vital signs: Temperature 97.0 F Pulse Rate 68 Respiratory Rate 16 Blood Pressure 112/70 Pulse Oximetry 95 Oxygen Delivery Me thod Room Air Oxygen Flow Rate 4 Fraction of Inspir ed Oxygen Hydration adequate: Yes Nausea and vomiting: No Pain level: 1 Mental status: Baseline
== END 2025-01-15 10:38 | disposition home or self-care (01) ==
PROVIDERS: PCP Registered Nurse; Visit Provider Student in an Organized Health Care Education/Training Program
PROC: 0DJ08ZZ Inspection of Upper Intestinal Tract, Via Natural or Artificial Opening Endoscopic (ICD-10-PCS; principal; 2025-01-15 10:15)
DX: K29.50 Unspecified chronic gastritis without bleeding (principal); K44.9 Diaphragmatic hernia without obstruction or gangrene; K21.9 Gastro-esophageal reflux disease without esophagitis; I10 Essential (primary) hypertension; G47.30 Sleep apnea, unspecified; E78.5 Hyperlipidemia, unspecified; Z79.82 Long term (current) use of aspirin; Z79.899 Other long term (current) drug therapy; Z88.8 Allergy status to other drugs, medicaments and biological substances; Z90.49 Acquired absence of other specified parts of digestive tract; Z80.0 Family history of malignant neoplasm of digestive organs
CPT/HCPCS: 43239; 88305; 88342; J2704; J3490; J7030

== ENCOUNTER 2025-01-21 07:45 | Outpatient (CLI) | payer OTHER, SELFPAY ==
--- NOTE | 2025-01-21 10:20 | US_ITS ---
WS: [id number] THYROID ULTRASOUND HISTORY: E04.1 - Nontoxic single thyroid nodule COMPARISON: 07/19/2024 Right lobe: 1.5 cm x 1.8 cm x 4.0 cm (w x ap x l). Volume: 5.1 cm3. Normal sized gland. Hypoechoic to isoechoic nodule in the posterior mid gland is reidentified measuring 1.4 x 1.1 x 1.4 cm. Increased peripheral vascularity. Nodule has not increased in size. No echogenic foci. Left lobe: 1.7 cm x 1.2 cm x 3.9 cm (w x ap x l). Volume: 3.8 cm3. Normal size and echotexture. No significant or dominant nodules are present. Isthmus: 0.2 cm. US/US thyroid [id number] IMPRESSION: 1. TI-RADS 3; mid RIGHT thyroid nodule is unchanged in size. Nodule is measuri ng slightly smaller on today's exam. Follow-up ultrasound recommended for TI-RA DS 3 nodule at 1, 3 and 5 years post original documentation which was on 12/14/19 24. 2. No suspicious nodules LEFT thyroid.
== END 2025-01-21 07:46 | disposition home or self-care (01) ==
PROVIDERS: PCP Registered Nurse; Visit Provider Registered Nurse
DX: E04.1 Nontoxic single thyroid nodule (principal)
CPT/HCPCS: 76536

== ENCOUNTER 2025-06-29 20:35 | Inpatient (IN) | payer OTHER, SELFPAY ==
--- OUTSIDE RECORDS SUMMARY | 2024-06-09 03:00 | XMS_ITS ---
Author Organization [facility] Address [address] [place] [address] Care Team Providers Care First Aid Nurse Name Role Phone Wallace Mcdaniels Primary Care Provider Unavailabl e Migration, Provider Unavailable Unavailable REASON FOR VISIT EMR-M[facility] Encounters Encounter Location Date Provider Diagnosis Migrated_Facility 0 0 06/09/2024 Provider Migration Plan Of Treatment No Information Progress Notes * ARLETH LuisDOB:1960 (64 yo M)Acc No.[id number]:06/09/2024 Patient: Luis ADAMS :1960 A ge:63 Y S ex:Male Address:[address] [facility] [address] Subjective: * Chief Complaints: * E MR-Mynor * * Date:
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
--- OUTSIDE RECORDS SUMMARY | 2025-06-29 20:39 | XMS_ITS | Patient Health Record ---
Author Organization [facility] Address [address] [place] [address] Care Team Providers Care Restaurant Shift Supervisor Name Role Phone Daisy Rogers Primary Care Provider Tika Wong Unavailable Allergies No Known Allergies Reason For Referral No Information Medications Medication SIG (Take, Route, Fr equency, Duration) Notes Start Date End Date Status Colesevelam HCl Acti ve Celecoxib 50 MG Capsule TAKE 1 CAPSULE B Y MOUTH TWICE DAILY; Duration: 30 Active Metoprolol Tartrate Active Olmesartan Medoxomil Active Pantoprazole Sodium Active Sertraline HCl Activ e Social History Social History Tobacco Use: Social Info Question Answer Notes Tobacco use other than smoking: Are you an other tobacco user? 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 Yes Problems Problem Type SNOMED Code ICD Code Onset Dates Problem Status W/U Status Risk Notes Problem Chronic pain syndrome (455598784) Chronic pain syndrome (G89.4) Active confirmed Problem Cervicalgia (38353743) Cervicalgia (M54.2) Active confirmed Problem Impingement syndrome of shoulder region (863310879) Impingement syndrome of right shoulder (M75.41) Active confirmed Problem Impingement syndrome of left shoulder region (129008784759475 ) Impingement syndrome of left shoulder (M75.42) Active confirmed Problem Myalgia of auxiliary muscles, head and neck (M79.12) Active confirmed Problem Muscle pain (31883576) Myalgia, other site (M79.18) Active confirmed Problem Cervical spondylosis (935953237) Cervical spondylosis (M47.812) Active confirmed Problem Myalgia (00340673) Myalgia (M79.10) Active confirmed Problem Muscle pain (98592943) Myalgia, multiple sites (M79.18) Active confirmed Vital Signs Height-cm 175.26 cm 10/02/2024 Weight-kg 83.01 kg 07/03/2024 General: Well developed, well nourished, in no acute distress. Appearing stated age sitting upright in chair. Head: Normocephalic and atraumatic. Lungs: Unlabored respiration, no audible wheezing Msk: No spine deformities Denies reproducible pain on palpation in the cervico-thoracic midspine Endorses reproducible pain on palpation in the cervico-thoracic paraspinal area, Tight and tender bands appreciated cervical paraspinals and trapezius and rhomboids. Denies reproducible pain on palpation of the cervical facets for the Right and left side of the neck Height 69 in 10/02/2024 Weight 183 lbs 07/03/2024 General: Well developed, well nourished, in no acute distress. Appearing stated age sitting upright in chair. Head: Normocephalic and atraumatic. Lungs: Unlabored respiration, no audible wheezing Msk: No spine deformities Denies reproducible pain on palpation in the cervico-thoracic midspine Endorses reproducible pain on palpation in the cervico-thoracic paraspinal area, Tight and tender bands appreciated cervical paraspinals and trapezius and rhomboids. Denies reproducible pain on palpation of the cervical facets for the Right and left side of the neck BMI 27.02 kg/m2 07/03/2024 General: Well developed, well nourished, in no acute distress. Appearing stated age sitting upright in chair. Head: Normocephalic and atraumatic. Lungs: Unlabored respiration, no audible wheezing Msk: No spine deformities Denies reproducible pain on palpation in the cervico-thoracic midspine Endorses reproducible pain on palpation in the cervico-thoracic paraspinal area, Tight and tender bands appreciated cervical paraspinals and trapezius and rhomboids. Denies reproducible pain on palpation of the cervical facets for the Right and left side of the neck Encounters Encounter Location Date Provider Diagnosis [facility] [place] [address] [place] [place] [address] 07/31/2024 Tika Lyuksyutova-Pric e Chronic pain syndrome G89.4 ; Cervicalgia M54.2 ; Myalgia of auxiliary muscles, head and neck M79.12 ; Myalgia, multiple sites M79.18 ; Impingement syndrome of right shoulder M75.41 ; Impingement syndrome of left shoulder M75.42 and Other snf (current) drug therapy Z79.899 [facility] [address] [address] 11/20/2024 Tika Carmonasyshalonda-Pric e Chronic pain syndrome G89.4 ; Cervicalgia M54.2 ; Myalgia of auxiliary muscles, head and neck M79.12 ; Impingement syndrome of right shoulder M75.41 ; Impingement syndrome of left shoulder M75.42 ; Myalgia, other site M79.18 and Cervical spondylosis M47.812 [facility] [address] [address] 10/02/2024 Tika Carmonasyshalonda-Pric e Chronic pain syndrome G89.4 ; Cervicalgia M54.2 ; Myalgia of auxiliary muscles, head and neck M79.12 ; Impingement syndrome of right shoulder M75.41 ; Impingement syndrome of left shoulder M75.42 and Myalgia, other site M79.18 [facility] [address] [address] 07/03/2024 Tika Carmonasyshalonda-Pric e Chronic pain syndrome G89.4 ; Myalgia of auxiliary muscles, head and neck M79.12 ; Impingement syndrome of right shoulder M75.41 ; Impingement syndrome of left shoulder M75.42 and Myalgia, multiple sites M79.18 [facility] [address] [place] [address] 10/30/2024 Tika Carmonasyshalonda-Pric e Cervicalgia M54.2 [facility] [address] [place] [address] 08/29/2024 Tika Carmonasyshalonda-Pric e Impingement syndrome of left shoulder M75.42 [facility] [address] [place] [address] 02/[facility] Cervical spondylosis M47.812 Assessments Encounter Date Diagnosis (ICD Code) Assessment Notes Treatment Notes Treatment Clinical Notes Section Notes 02/14/2025 Cervical spondylosis (ICD-10 - M47.812) 11/20/2024 Chronic pain syndrome (ICD-10 - G89.4) Mr. Sorensen is a pleasant patient with myalgia mediated pain. The Diclofenac 75 mg was not giving him as much pain relief as it has in the past. We discussed trialing Celebrex 50 mg BID. He's reported excellent relief from serial trigger point injections. Overall, he's 75% better compared to whenever he first started seeing me. He's now able to perform his activities of daily living as well as his job. 10/30/2024 Cervicalgia (ICD-10 - M54.2) 10/02/2024 Chronic pain syndrome (ICD-10 - G89.4) Ms. Sorensen is a pleasatn patient with mylagia mediated pain. The Diclofenac 50 mg is not giving him as much pain relief as it has in the past. He denies any side effects. I'll increase it to 75 mg BID. I will also provide patient with an intramuscular injection of Depo Medrol today for acute muscle spasm. 10/02/2024 Cervicalgia (ICD-10 - M54.2) 08/29/2024 Impingement syndrome of left shoulder (ICD-10 - M75.42) 07/31/2024 Chronic pain syndrome (ICD-10 - G89.4) Mr. Sorensen is a very pleasant gentleman with history and physical exam consistent of cervical spondylosis and myalgia mediated pain. The options for treatment were explained in detail, this included PT, medications, injections, lifestyle modifications and exercise. The patient presents to clinic for medication evaluation and management. The patient is stable on their current medication regimen and endorses adequate analgesia, increased ADLs, denies abuse and side effects. The INDUSTRIAL ECONOMICS PROFESSOR was reviewed with no untoward events noted. UDS reviewed and is as expected. A bowel regimen was discussed with the patient. - Diclofenac 50 mg BID, #60, 2 refills - In the future can consider repeating trigger point injections. He's currently doing really well off of them. - Follow up in 3 months for reevaluation 07/31/2024 Cervicalgia (ICD-10 - M54.2) 07/03/2024 Chronic pain syndrome (ICD-10 - G89.4) Mr. Sorensen is a very pleasant gentleman with history and physical exam consistent of cervical spondylosis and myalgia mediated pain. We will try Diclofenac at this time. He will stop meloxicam. Patient has history, and physical exam consistent with pain generated from myalgia, I discussed with the patient pursuing trigger point injections with ultrasound guidance. Risks and expectations of the procedure were discussed with the patient, and they agree to proceed. Ultrasound is needed for needle localization into specific muscle groups and to decrease the risk of intravascular injection as well as decrease the risk of pneumothorax. The options for treatment were explained in detail, this included PT, medications, injections, lifestyle modifications and exercise. Will proceed with ultrasound guided trigger point injections today in clinic I, Gabbi Elena, am scribing for Dr. Ca. I, Dr. Ca, personally performed the services described in this documentation, as scribed by Gabbi Elena, and it is both accurate and complete. 07/03/2024 Myalgia of auxiliary muscles, head and neck (ICD-10 - M79.12) Written and verbal informed consent were obtained. Sterile prep at upper neck. Painful area palpated. 25 ga needle was used. 1 mL of 10 mg/mL Dexamethasone and 4 mL 0.5% lidocaine injected after negative aspiration. 3+ muscle groups injected. Ultrasound used for guidance. No complications noted. Muscles injected: cervical paraspinals and trapezius [facility] DEX 97053-502-17 Lot: [id number] Exp: 07/2024 [facility] LIDO 84370-834-79 Lot: [id number] Exp: 11/202507/03/2024 Impingement syndrome of right shoulder (ICD-10 - M75.41) 10/02/2024 Myalgia of auxiliary muscles, head and neck (ICD-10 - M79.12) 07/31/2024 Myalgia of auxiliary muscles, head and neck (ICD-10 - M79.12) 11/20/2024 Cervicalgia (ICD-10 - M54.2) 10/02/2024 Impingement syndrome of right shoulder (ICD-10 - M75.41) 11/20/2024 Myalgia of auxiliary muscles, head and neck (ICD-10 - M79.12) Patient has history, and physical exam consistent with pain generated from myalgia, I discussed with the patient pursuing trigger point injections with ultrasound guidance. Risks and expectations of the procedure were discussed with the patient, and they agree to proceed. Ultrasound is needed for needle localization into specific muscle groups and to decrease the risk of intravascular injection as well as decrease the risk of pneumothorax. The options for treatment were explained in detail, this included PT, medications, injections, lifestyle modifications and exercise. Will proceed with ultrasound guided trigger point injections of the cervical paraspinals 07/31/2024 Myalgia, multiple sites (ICD-10 - M79.18) 07/03/2024 Impingement syndrome of left shoulder (ICD-10 - M75.42) 07/03/2024 Myalgia, multiple sites (ICD-10 - M79.18) 07/31/2024 Impingement syndrome of right shoulder (ICD-10 - M75.41) 10/02/2024 Impingement syndrome of left shoulder (ICD-10 - M75.42) 11/20/2024 Impingement syndrome of right shoulder (ICD-10 - M75.41) 11/20/2024 Impingement syndrome of left shoulder (ICD-10 - M75.42) 07/31/2024 Impingement syndrome of left shoulder (ICD-10 - M75.42) 10/02/2024 Myalgia, other site (ICD-10 - M79.18) 07/31/2024 Other snf (current) drug therapy (ICD-10 - Z79.899) 11/20/2024 Myalgia, other site (ICD-10 - M79.18) 11/20/2024 Cervical spondylosis (ICD-10 - M47.812) 07/31/2024 Gabbi Pressley, am scribing for Dr. Ca. Dr. Roby Akbar, personally performed the services described in this documentation, as scribed by Gabbi Elena, and it is both accurate and complete. 10/02/2024 Gabbi Pressley, am scribing for Dr. Ca. Dr. Roby Akbar, personally performed the services described in this documentation, as scribed by Gabbi Elena, and it is both accurate and complete. 11/20/2024 Other I, Gabbi Elena, am scribing for Dr. Ca. I, Dr. Ca, personally performed the services described in this documentation, as scribed by Gabbi Elena, and it is both accurate and complete. Plan Of Treatment No Information Insurance Providers Payer Name Payer Address Payer Phone Subscriber Number Group Number Insured Name Patient Relationship to Insured Coverage Start Date Coverage End Date [employer] [address] [address] [place] [address] [id number] Luis Sorensen Self - patient is the insured Medications Administered Medication Instructions Date of Administration Dosage Notes BUPivacaine HCl 10/02/2024 4 mL [facility] # 5902-[address] Ca Office note methylPREDNISolone Acetate 10/02/2024 1 mL [facility]# [address]-[address] Ca notes Medical (General) History Medical History History ICD Code Arthritis HTN Surgical History Surgery Date(Month/Year) cholecystectomy Bilateral cervical paraspinal trapezius TPI w/US 07/03/24 Hospitalization History Reason Date(Month/Year) see surgical hx
--- OUTSIDE RECORDS SUMMARY | 2025-06-29 20:39 | XMS_ITS | Encounter Summary ---
Author Organization [facility] Address [address] [place] [address] Care Team Providers Care Internal Consultant Name Role Phone Non-Staff, Physician Primary Care Provider Unava ilable Encounter Details Date Type Department Care Team (Latest Contact Info) Description 10/30/2001 Outpatient Historical [facility] Medicine [place] [address] [facility] [address] [place] [address] Martin Vasquez MD [address] [phone] Dysfunct eustachian tube (Primary Dx); ACUTE PHARYNGITIS; ACUTE SINUSITIS NOS Social History Tobacco Use Types Packs/Day Years Used Date Smoking Tobacco: Never Assessed Sex and Gender Information Value Date Recorded Sex Assigned at Not on file 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
--- OUTSIDE RECORDS SUMMARY | 2025-06-29 20:39 | XMS_ITS | Encounter Summary ---
Author Organization [facility] Address [address] [place] [address] Care Team Providers Care Federal Judge Name Role Phone Non-Staff, Physician Primary Care Provider Unava ilable Encounter Details Date Type Department Care Team (Latest Contact Info) Description 12/30/1998 Outpatient Historical [facility] Medicine [place] [address] [facility] [address] [place] [address] Sage Soriano, NO ADDRESS ON FILE Acute sinusitis, unspecified (Primary Dx); Dermatophytosis of foot Social History Tobacco Use Types Packs/Day Years Used Date Smoking Tobacco: Never Assessed Sex and Gender Information Value Date Recorded Sex Assigned at Not on file Legal 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
--- OUTSIDE RECORDS SUMMARY | 2025-06-29 20:39 | XMS_ITS | Encounter Summary ---
Author Organization [facility] Address [address] [place] [address] Care Team Providers Care Malt Liquors Sales Supervisor Name Role Phone Non-Staff, Physician Primary Care Provider Unava ilable Encounter Details Date Type Department Care Team (Latest Contact Info) Description 06/09/2001 Outpatient Historical [facility] Medicine [place] [address] 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
--- OUTSIDE RECORDS SUMMARY | 2025-06-29 20:39 | XMS_ITS | Encounter Summary ---
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 Social History Tobacco Use Types Packs/Day Years Used Date Smoking Tobacco: Never Assessed Sex and Gender Information Value Date Recorded Sex Assigned at Not on file 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
--- OUTSIDE RECORDS SUMMARY | 2025-06-29 20:40 | XMS_ITS | Encounter Summary ---
Author Organization [facility] Address [address] [place] [address] Care Team Providers Care Rail Manager Name Role Phone Non-Staff, Physician Primary Care Provider Unava ilable Encounter Details Date Type Department Care Team (Latest Contact Info) Description 05/28/2002 Outpatient Historical [facility] Medicine [place] [address] [facility] [address] [place] [phone] Sage Soriano DO NO ADDRESS ON FILE BACKACHE NOS (Primary Dx); SPRAIN OF BACK NOS; HYPERLIPIDEMIA NEC/NOS Social History Tobacco Use Types Packs/Day Years Used Date Smoking Tobacco: Never Assessed Sex and Gender Information Value Date Recorded Sex Assigned at Not on file 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
--- OUTSIDE RECORDS SUMMARY | 2025-06-29 20:40 | XMS_ITS | Encounter Summary ---
Author Organization [facility] Address [address] [place] [address] Care Team Providers Care Labor Employment Associate Name Role Phone Non-Staff, Physician Primary Care Provider Unava ilable Encounter Details Date Type Department Care Team (Latest Contact Info) Description 11/11/2000 Outpatient Historical [facility] Medicine [place] [address] [facility] [address] [place] [address] Sage Soriano DO NO ADDRESS ON FILE Other and unspecified hyperlipidemia (Primary Dx) Social History Tobacco Use Types Packs/Day Years Used Date Smoking Tobacco: Never Assessed Sex and Gender Information Value Date Recorded Sex Assigned at Not on file Legal 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
--- OUTSIDE RECORDS SUMMARY | 2025-06-29 20:40 | XMS_ITS | Encounter Summary ---
Author Organization [facility] Address [address] [place] [address] Care Team Providers Care Cleaner Signs Name Role Phone Non-Staff, Physician Primary Care Provider Unava ilable Encounter Details Date Type Department Care Team (Latest Contact Info) Description 02/08/2000 Outpatient Historical [facility] Medicine [place] [address] [facility] [address] [place] [phone] Sage Soriano DO NO ADDRESS ON FILE Other and unspecified hyperlipidemia (Primary Dx) Social History Tobacco Use Types Packs/Day Years Used Date Smoking Tobacco: Never Assessed Sex and Gender Information Value Date Recorded Sex Assigned at Not on file 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
--- OUTSIDE RECORDS SUMMARY | 2025-06-29 20:40 | XMS_ITS | Encounter Summary ---
Author Organization [facility] Address [address] [place] [address] Care Team Providers Care Foreign Exchange Services Manager Name Role Phone Non-Staff, Physician Primary Care Provider Unava ilable Encounter Details Date Type Department Care Team (Latest Contact Info) Description 12/16/2003 Outpatient Historical [facility] Medicine [place] [address] [facility] [address] [place] [phone] Stuart Odonnell NP NO ADDRESS ON FILE INFEC OTITIS EXTERNA NOS (Primary Dx); ACUTE PHARYNGITIS Social History Tobacco Use Types Packs/Day Years Used Date Smoking Tobacco: Never Assessed Sex and Gender Information Value Date Recorded Sex Assigned at Not on file Legal 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
--- OUTSIDE RECORDS SUMMARY | 2025-06-29 20:40 | XMS_ITS | Encounter Summary ---
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
--- OUTSIDE RECORDS SUMMARY | 2025-06-29 20:40 | XMS_ITS | Encounter Summary ---
Author Organization [facility] Address [address] [place] [address] Care Team Providers Care Brewery Technician Name Role Phone Non-Staff, Physician Primary Care Provider Unava ilable Encounter Details Date Type Department Care Team (Latest Contact Info) Description 07/31/1999 Outpatient Historical [facility] Family Medicine [place] [address] 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
--- OUTSIDE RECORDS SUMMARY | 2025-06-29 20:40 | XMS_ITS | Encounter Summary ---
Author Organization [facility] Address [address] [place] [address] Care Team Providers Care Mail Deliverer Name Role Phone Non-Staff, Physician Primary Care Provider Unava ilable Encounter Details Date Type Department Care Team (Late st Contact Info) Description 10/07/2004 Outpatient Historical [facility] FY06 Martin Vasquez MD [address] [phone] Social History Tobacco Use Types Packs/Day Years Used Date Smoking Tobacco: Never Assessed Sex and Gender Information Value Date Recorded Sex Assigned at Not on file Legal Sex Male 4:07 AM MANAGER 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 Gender Identity Not on file Sexual Orientation Not on file documented as of this encounter Plan of Treatment Not on file documented as of this encounter Procedures Procedure Name Priority Date/Time Associated Diagnosis Comments LDL CHOLESTEROL, DIRECT Routine 10/07/2004 7:31 AM MANAGER 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 documented in this encounter Results * LDL CHOLESTEROL, DIRECT (10/07/2004 7:31 AM MANAGER 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) LDL CHOLESTEROL, DIRECT See Sep Report INTERFACE SYSTEM 10/07/2004 7:31 AM MANAGER 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 us Martin Vasquez MD CHEMISTRY ORDERABLES Final Result INTERFACE SYSTEM Refer to clinic/hospital department documented in this encounter Visit Diagnoses Not on filedocumented in this encounter Care Teams Mail Deliverer Relationship Specialty Start Date End Date Non-Staff, Physician NO ADDRESS ON FILE PCP - General 12/03/13 documented as of this encounter
--- OUTSIDE RECORDS SUMMARY | 2025-06-29 20:40 | XMS_ITS | Encounter Summary ---
Author Organization [facility] Address [address] [place] [address] Care Team Providers Care Propulsion Machinery Service Engineer Name Role Phone Non-Staff, Physician Primary Care Provider Unava ilable Encounter Details Date Type Department Care Team (Latest Contact Info) Description 08/11/1999 Outpatient Historical [facility] Family Medicine [place] 104 [facility] 60 [place] [address] Martin Vasquez MD [address] [phone] Other and unspecified hyperlipidemia (Primary Dx) Social History Tobacco Use Types Packs/Day Years Used Date Smoking Tobacco: Never Assessed Sex and Gender Information Value Date Recorded Sex Assigned at Not on file 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
--- OUTSIDE RECORDS SUMMARY | 2025-06-29 20:40 | XMS_ITS | Encounter Summary ---
Author Organization [facility] Address [address] [place] [address] Care Team Providers Care Ophthalmic Surgeon Name Role Phone Non-Staff, Physician Primary Care Provider Unava ilable Encounter Details Date Type Department Care Team (Latest Contact Info) Description 07/27/2002 Outpatient Historical [facility] Medicine [place] 104 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
[2025-06-29 20:41] VITALS: BP 131/82; PULSE 78; RESP 18; TEMP 36.8; O2SAT 95; BMI 26.6
--- OUTSIDE RECORDS SUMMARY | 2025-06-29 20:41 | XMS_ITS | Encounter Summary ---
Author Organization [facility] Address [address] [place] [address] Care Team Providers Care Coil Cutter Name Role Phone Non-Staff, Physician Primary Care Provider Unava ilable Encounter Details Date Type Department Care Team (Latest Contact Info) Description 08/27/2004 Outpatient Historical [facility] General Surgery [place] [address] [address] [place] [phone] [place] [address] [facility] [address] [place] [id number] MELENA, BLOOD IN STOOL (Primary Dx) Social History Tobacco Use Types Packs/Day Years Used Date Smoking Tobacco: Never Assessed Sex and Gender Information Value Date Recorded Sex Assigned at Not on file Legal Sex Male 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
--- OUTSIDE RECORDS SUMMARY | 2025-06-29 20:41 | XMS_ITS | Encounter Summary ---
Author Organization [facility] Address [address] [place] [address] Care Team Providers Care Medical Imaging Technologist Name Role Phone Non-Staff, Physician Primary Care Provider Unava ilable Encounter Details Date Type Department Care Team (Latest Contact Info) Description 08/21/2004 Outpatient Historical [facility] Medicine [place] 104 [facility] 60 [place] [phone] Martin Vasquez MD [address] [phone] MELENA, BLOOD IN STOOL (Primary Dx); ABDOMINAL PAIN UNSPEC SITE Social History Tobacco Use Types Packs/Day Years Used Date Smoking Tobacco: Never Assessed Sex and Gender Information Value Date Recorded Sex Assigned at Not on file Legal Sex Male 4:07 AM DEMI CHEF Gender Identity Not on file Sexual Orientation Not on file documented as of this encounter Plan of Treatment Not on file documented as of this encounter Visit Diagnoses Diagnosis Blood in stool- Primary Abdominal pain, unspecified site documented in this encounter Care Teams Medical Imaging Technologist Relationship Specialty Start Date End Date Non-Staff, Physician NO ADDRESS ON FILE PCP - General 12/03/13 documented as of this encounter
--- OUTSIDE RECORDS SUMMARY | 2025-06-29 20:41 | XMS_ITS | Encounter Summary ---
Author Organization [facility] Address [address] [place] [address] Care Team Providers Care Information Technology Account Manager Name Role Phone Non-Staff, Physician Primary Care Provider Unava ilable Encounter Details Date Type Department Care Team (Latest Contact Info) Description 05/04/2004 Outpatient Historical [facility] Medicine [place] 104 [facility] 60 [place] [phone] Martin Vasquez MD [address] [phone] DERMATOPHYTOSIS OF FOOT (Primary Dx); HYPERLIPIDEMIA NEC/NOS Social History Tobacco Use Types Packs/Day Years Used Date Smoking Tobacco: Never Assessed Sex and Gender Information Value Date Recorded Sex Assigned at Not on file Legal Sex Male 4:07 AM ART CRITIC Gender Identity Not on file Sexual Orientation Not on file documented as of this encounter Plan of Treatment Not on file documented as of this encounter Visit Diagnoses Diagnosis Dermatophytosis of foot- Primary Other and unspecified hyperlipidemia documented in this encounter Care Teams Information Technology Account Manager Relationship Specialty Start Date End Date Non-Staff, Physician NO ADDRESS ON FILE PCP - General 12/03/13 documented as of this encounter
--- OUTSIDE RECORDS SUMMARY | 2025-06-29 20:41 | XMS_ITS | Encounter Summary ---
Author Organization [facility] Address [address] [place] [address] Care Team Providers Care Water Registrar Name Role Phone Non-Staff, Physician Primary Care Provider Unava ilable Encounter Details Date Type Department Care Team (Latest Contact Info) Description 01/09/2004 Outpatient Historical [facility] Medicine [place] 104 [facility] 60 [place] [phone] Isabela Unger MD NO ADDRESS ON FILE URIN TRACT INFECTION NOS (Primary Dx) Social History Tobacco Use Types Packs/Day Years Used Date Smoking Tobacco: Never Assessed Sex and Gender Information Value Date Recorded Sex Assigned at Not on file Legal Sex Male 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
--- OUTSIDE RECORDS SUMMARY | 2025-06-29 20:41 | XMS_ITS | Clinical Summary ---
Author Organization [facility] Address [address] [place] [address] Care Team Providers Care House Painting Instructor Name Role Phone Non-Staff, Physician Primary Care Provider Unava ilable Allergies Active Allergy Reactions Criticality Noted Date Comments Lovastatin Muscle Pain Low 11/04/2008 Mite Extract Cough High 10/21/2011 Medications ASPIRIN 81 mg Oral Tab Take 81 mg by mouth daily. Active ONE-A-DAY 50 PLUS PO Take by mouth. Take one po daily Active famotidine (PEPCID) 20 mg tablet Take 20 mg by mouth late in the day. Active olmesartan (BENICAR) 20 mg tablet Take 20 mg by mouth daily. Active Glucosamine Sulfate 1,000 mg Capsule Take by mouth daily. Active amLODIPine (NORVASC) 2.5 mg tablet Take 2.5 mg by mouth daily. Active pantoprazole (PROTONIX) 40 mg Tablet, Delayed Release (E.C.) Take 40 mg by mouth daily. Active Active Problems Problem Noted Date Diagnosed Date GERD (gastroesophageal reflux disease) 1 Allergic rhinitis 11/21/2009 Overview (10/21/2011): Allergy testing showed severe allergy to dust mites (2) Prostate cancer screening 11/04/2008 Overview (11/04/2008): PSA: 02/19 Kidney stones 08/01/2008 Hemorrhoids, internal 08/01/2008 Screen for colon cancer 08/01/2008 Overview (11/04/2008): Colonoscopy: 09/23 (Normal); 08/19: No polyps, presence of large internal hemorrhoid Hyperlipidemia Immunizations Immunization Administration Dates Next Due (SPIKEVAX) (12 YRS UP PRIMAR Y SERIES) COVID-19 VACCINE - MRNA-1273(PF) 100 MCG/0.5 ML IM SUSP 10/27/2020,09/29/2020 Influenza Seasonal Unspecifi ed Formulation IM 05/15/2011,05/15/2010,06/13/2008 Family History Medical History Relation Name Comments High Cholesterol Father Hypertension Father High Cholesterol Maternal Grandfather Diabetes Maternal Grandmother Heart Disease Maternal Grandmother High Cholesterol Maternal Grandmother Hypertension Maternal Grandmother Asthma Mother Diabetes Mother High Cholesterol Mother Hypertension Mother High Cholesterol Paternal Grandfather Lung Cancer Paternal Grandfather Cancer Paternal Grandmother Uterine CA High Cholesterol Paternal Grandmother Hypertension Sister Breast Cancer Neg Hx Colon Cancer Neg Hx Relation Name Status Comments Father Maternal Grandfather Maternal Grandmother Mother Paternal Grandfather Paternal Grandmother Sister Social History Tobacco Use Types Packs/Day Years Used Date Smoking Tobacco: Former Cigarettes Q uit: 08/15/1982 Smokeless Tobacco: Never Comments:quit 25 years ago Alcohol Use Standard Drinks/Week Comments Yes 0 (1 standard drink = 0.6 oz pur e alcohol) 2 beers in 2 weeks Sex and Gender Information Value Date Recorded Sex Assigned at Not on file Legal Sex Male 4:07 AM DIE MAKER TRIM Gender Identity Not on file Sexual Orientation Not on file Last Filed Vital Signs Vital Sign Reading Time Taken Comments Blood Pressure 130/73 11/14/2019 2:54 PM CDT Pulse 54 07/26/2018 1:36 PM DIE MAKER TRIM Temperature 36.6 C (97.8 F) 11/14/2019 2:54 PM CDT Respiratory Rate 20 11/14/2019 2:54 PM CDT Oxygen Saturation 97% 11/14/2019 2:54 PM CDT Inhaled Oxygen Concentration - - Weight 85 kg (187 lb 8 oz) 11/14/2019 1:33 PM CD T Height 175.3 cm (5' 9 ) 11/14/2019 1:33 PM CDT Body Mass Index 27.69 11/14/2019 1:33 PM CDT Plan of Treatment Health Maintenance Due Date Last Done Comments DTAP/TDAP/TD VACCINES (1 - Tdap) 1981 FIT-DNA Q 3 years 2007 FIT/FOBT Q 1 year 2007 Flex Sig/CT Colonography Q 5 years 2007 ZOSTER VACCINE (1 of 2) 2012 COLORECTAL SCREENING 09/23/2018 09/23/2008 Colorectal Cancer Screening 09/23/2018 INFLUENZA VACCINE (#1) 2025 1, 05/15/2010, 06/13/2008 COVID-19 Vaccine ( season) 2025, 09/29/2020 RSV VACCINE (60+ or ) (1 - 1-dose 75+ series) 2037 Procedures Procedure Name Priority Date/Time Associated Diagnosis Comments TX COLONOSCOPY FLX DX W/HUMBERTO J SPEC WHEN PFRMD Routine 09/23/2008 from Last 3 Months or Most Recently Relevant to Health Maintenance Results * TX COLONOSCOPY,DIAGNOSTIC (09/23/2008) Ry Prabhakar DO [place] - DIGESTIVE SYSTEM SERVICE S Final Result [facility] from Last 3 Months or Most Recently Relevant to Health Maintenance Insurance [employer] WORK[employer] * Guarantor: [id number] Account Type Relation to Patient Date of Phone Billing Address Workers Comp Employer Care Teams House Painting Instructor Relationship Specialty Start Date End Date Non-Staff, Physician NO ADDRESS ON FILE PCP - General 12/03/13
--- OUTSIDE RECORDS SUMMARY | 2025-06-29 20:41 | XMS_ITS | Clinical Summary ---
Author Organization [facility] Address [address] [place] [address] Care Team Providers Care Gill Box Tender Name Role Phone Non-Staff, Physician Primary Care Provider Unava ilable Allergies Active Allergy Reactions Criticality Noted Date Comments Lovastatin Muscle Pain Low 11/04/2008 Mite Extract Cough High 10/21/2011 Medications famotidine (PEPCID) 20 mg tablet Take 20 mg by mouth late in the day. 07/26/2018 Active Glucosamine Sulfate 1,000 mg Capsule Take by mouth daily. 07/26/2018 Active olmesartan (BENICAR) 20 mg tablet Take 20 mg by mouth daily. 07/26/2018 Active pantoprazole (PROTONIX) 40 mg Tablet, Delayed Release (E.C.) Take 40 mg by mouth daily. 11/14/2019 Active amLODIPine (NORVASC) 2.5 mg tablet Take 2.5 mg by mouth daily. 04/08/2019 Active ondansetron (ZOFRAN ODT) 4 mg Tablet, Rapid Dissolve Take 1 Tablet (4 mg) by mouth every 6 hours as needed for Nausea/Emesis . Dissolve tablet on top of tongue, then swallow with saliva. 10 Tablet 05/29/2023 Active Active Problems Problem Noted Date Diagnosed Date GERD (gastroesophageal reflux disease) 1 Allergic rhinitis 11/21/2009 Overview (12/11/2020): Allergy testing showed severe allergy to dust mites (09/26) Prostate cancer screening 11/04/2008 Overview (12/11/2020): PSA: 02/19 Kidney stones 08/01/2008 Screen for colon cancer 08/01/2008 Overview (12/11/2020): Colonoscopy: 09/23 (Normal); 08/19: No polyps, presence of large internal hemorrhoid Hemorrhoids, internal 08/01/2008 Hyperlipidemia Immunizations Immunization Administration Dates Next Due [...] Cigarettes Q uit: 08/15/1982 Smokeless Tobacco: Never Comments:Quit smoking: quit 25 years ago Alcohol Use Standard Drinks/Week Comments Yes 0 (1 standard drink = 0.6 oz pur e alcohol) Feeling Safe Answer Date Recorded Are you in a relationship wi th someone who hurts you emotionally and/or physically? No 05/29/2023 Sex and Gender Information Value Date Recorded Sex Assigned at Not on file Legal Sex Male 5:04 AM LEAD INSPECTOR Gender Identity Not on file Sexual Orientation Not on file Last Filed Vital Signs Vital Sign Reading Time Taken Comments Blood Pressure 110/82 05/29/2023 10:57 PM CDT Pulse 88 05/29/2023 10:57 PM CDT Temperature 36.8 C (98.3 F) 05/29/2023 9:30 PM CDT Respiratory Rate 16 05/29/2023 10:57 PM CDT Oxygen Saturation 96% 05/29/2023 10:57 PM CDT Inhaled Oxygen Concentration - - Weight 80.7 kg (178 lb) 05/29/2023 8:20 PM CDT Height 175.3 cm (5' 9 ) 05/29/2023 8:20 PM CDT Body Mass Index 26.29 05/29/2023 8:20 PM CDT Plan of Treatment Health Maintenance Due Date Last Done Comments DTAP/TDAP/TD VACCINES (1 - Tdap) 1981 FIT-DNA Q 3 years 2007 FIT/FOBT Q 1 year 2007 Flex Sig/CT Colonography Q 5 years 2007 ZOSTER VACCINE (1 of 2) 2012 COLORECTAL SCREENING 09/23/2018 09/23/2008 Colorectal Cancer Screening 09/23/2018 INFLUENZA VACCINE (#1) 2025 2, 05/15/2011, 05/15/2010, Additional history exists COVID-19 Vaccine (3 - 2024-2 6 season) 2025 10/27/2020, 09/29/2020 RSV VACCINE (60+ or ) (1 - 1-dose 75+ series) 2037 Insurance [facility] Care Teams Gill Box Tender Relationship Specialty Start Date End Date Non-Staff, Physician NO ADDRESS ON FILE PCP - General 11/12/20
--- OUTSIDE RECORDS SUMMARY | 2025-06-29 20:42 | XMS_ITS | Encounter Summary ---
Author Organization [facility] Address [address] [place] [address] Care Team Providers Care Real Estate Leasing Manager Name Role Phone Non-Staff, Physician Primary Care Provider Unava ilable Encounter Details Date Type Department Care Team (Late st Contact Info) Description 10/28/2016 Ancillary Orders [facility] Admitting [address] [place] [address] Surekha Borjas, PATRICIO Obrien [address] [place] [address] Left hand pain Social History Tobacco Use Types Packs/Day Years Used Date Smoking Tobacco: Former Cigarettes Q uit: 08/15/1982 Comments:quit 25 years ago Alcohol Use Standard Drinks/Week Comments Yes 10 (1 standard drink = 0.6 oz pu re alcohol) MONTH Sex and Gender Information Value Date Recorded Sex Assigned at Not on file Legal 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 Exam: XR HAND 3+ VW LEFT Date/Time of Exam: 10/28/2016 11:00 AM Reason For Exam: Left hand pain. Comparison: None Findings: The bones are intact, well mineralized and normally aligned and the joint spaces are well maintained. IMPRESSION: 1. No acute abnormality. [id number] Narrative Procedure Note Robson Yepez MD - 10/28/2016 IMPRESSION IMPRESSION: Please see below. Exam: XR HAND 3+ VW LEFT Date/Time of Exam: 10/28/2016 11:00 AM Reason For Exam: Left hand pain. Comparison: None Findings: The bones are intact, well mineralized and normally aligned and the joint spaces are well maintained. IMPRESSION: 1. No acute abnormality. [id number] Filiberto Irby Sr., BLAST FURNACE BLOWER DIAGNOSTIC IMAGIN G ORDERABLES Final Result documented in this encounter Visit Diagnoses Diagnosis Left hand pain Pain in limb Left hand pain Pain in limb documented in this encounter Care Teams Real Estate Leasing Manager Relationship Specialty Start Date End Date Non-Staff, Physician NO ADDRESS ON FILE PCP - General 12/03/13 documented as of this encounter
--- OUTSIDE RECORDS SUMMARY | 2025-06-29 20:42 | XMS_ITS | Encounter Summary ---
Author Organization [facility] Address [address] [place] [address] Care Team Providers Care Encyclopedia Research Worker Name Role Phone Non-Staff, Physician Primary Care Provider Unava ilable Encounter Details Date Type Department Care Team (Late st Contact Info) Description 06/01/2013 Ancillary Orders [facility] [place] [address] [place] [address] Social History Tobacco Use Types Packs/Day Years Used Date Smoking Tobacco: Former Cigarettes Q uit: 08/15/1982 Comments:quit 25 years ago Alcohol Use Standard Drinks/Week Comments Yes 10 (1 standard drink = 0.6 oz pu re alcohol) MONTH Sex and Gender Information Value Date Recorded Sex Assigned at Not on file Legal Sex Male 4:07 AM FACILITY EXAMINER Gender Identity Not on file Sexual Orientation Not on file documented as of this encounter Plan of Treatment Not on file documented as of this encounter Procedures Procedure Name Priority Date/Time Associated Diagnosis Comments GLUCOSE FASTING Routine 06/01/2013 8:33 AM CDT LIPID PANEL Routine 06/01/2013 8:33 AM CDT documented in this encounter Results * GLUCOSE FASTING (06/01/2013 8:33 AM CDT) GLUCOSE FASTING 89 74 - 106 mg/dL 06/04/2013 11:54 AM CDT [facility] [place] Comment:Invalid Result. Eve morris credited. Blood specimen (specimen) 06/01/2013 8:33 AM CDT 06/01/2013 8:37 AM CDT [email or web address] [place] - 06/04/2013 11:54 AM CDT Tests reordered in [facility]. us External Provider Mtnv CHEMISTRY ORDERABLES Edit ed Result - Final [facility] CLIA # [id number] [address] [facility] [address] [place] [address] * (ABNORMAL) LIPID PANEL (06/01/2013 8:33 AM CDT) CHOLESTEROL 293(H) 130 - 200 mg/dL 06/04/2013 11:55 AM CDT [facility] [place] Comment:Invalid Result. Eve morris credited. TRIGLYCERIDE 134 30 - 200 mg/dL 06/04/2013 11:55 AM CDT [facility] [place] Comment:Invalid Result. Eve morris credited. HDL 47 35 - 80 mg/dL 06/04/2013 11:55 AM CDT [facility] [place] Comment:Invalid Result. Eve morris credited. LDL CALCULATED 219(H) 0 - 100 mg/dL 06/04/2013 11:55 AM CDT [email or web address] [place] Comment:Invalid Result. Eve morris credited. Blood specimen (specimen) 06/01/2013 8:33 AM CDT 06/01/2013 8:37 AM CDT [email or web address] [place] - 06/04/2013 11:55 AM CDT Tests reordered in [facility]. TOTAL CHOLESTEROL mg/dL Desirable <200 Borderline high 200-239 High >=240 TRIGLYCERIDES mg/dL Normal <150 Borderline high 150-199 High 200-499 Very high >=500 HDL CHOLESTEROL mg/dL Low <40 Normal 40-60 Desirable >60 LDL CHOLESTEROL mg/dL Optimal <100 Low risk 100-129 Borderline high 130-159 High 160-189 Very high >=190 Based on AHA/NCEP Guidelines us External Provider Mtnv CHEMISTRY ORDERABLES Edit ed Result - Final [facility] [place] CLIA # [id number] [address] [place] [address] documented in this encounter Visit Diagnoses Not on filedocumented in this encounter Care Teams Encyclopedia Research Worker Relationship Specialty Start Date End Date Non-Staff, Physician NO ADDRESS ON FILE PCP - General 12/03/13 documented as of this encounter
--- OUTSIDE RECORDS SUMMARY | 2025-06-29 20:42 | XMS_ITS | Encounter Summary ---
Author Organization [facility] Address [address] [place] [address] Care Team Providers Care Trolley Car Operator Name Role Phone Non-Staff, Physician Primary Care Provider Unava ilable Encounter Details Date Type Department Care Team (Late st Contact Info) Description 04/27/2012 Ancillary Orders [facility] Laboratory Services [place] [address] [place] [address] Social History Tobacco Use Types Packs/Day Years Used Date Smoking Tobacco: Former Cigarettes Q uit: 08/15/1982 Comments:quit 25 years ago Alcohol Use Standard Drinks/Week Comments Yes 10 (1 standard drink = 0.6 oz pu re alcohol) MONTH Sex and Gender Information Value Date Recorded Sex Assigned at Not on file Legal 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 Gender Identity Not on file Sexual Orientation Not on file documented as of this encounter Plan of Treatment Not on file documented as of this encounter Procedures Procedure Name Priority Date/Time Associated Diagnosis Comments GLUCOSE FASTING Routine 04/27/2012 8:00 AM CDT CHOLESTEROL TOTAL Routine 04/27/2012 8:0 0 AM CDT documented in this encounter Results * GLUCOSE FASTING (04/27/2012 8:00 AM CDT) GLUCOSE FASTING 91 74 - 106 mg/dL 04/27/2012 9:47 AM CDT [facility] Blood specimen (specimen) 04/27/2012 8:00 AM CDT 04/27/2012 9:05 AM CDT External Provider Mtnv CHEMISTRY ORDERABLES Yoon l Result Performing Organization Address [facility] Co de Phone Number [facility] [employer] [facility] CLIA # [id number] [address] [place] [address] * (ABNORMAL) CHOLESTEROL TOTAL (04/27/2012 8:00 AM CDT) CHOLESTEROL 289(H) 130 - 200 mg/dL 04/27/2012 9:47 AM CDT [facility] Blood specimen (specimen) 04/27/2012 8:00 AM CDT 04/27/2012 9:05 AM CDT Narrative [facility] - 04/27/2012 9:47 AM CDT TOTAL CHOLESTEROL mg/dL Desirable < 200 Borderline High 200 - 239 High >= 240 External Provider Mtnv CHEMISTRY ORDERABLES Yoon l Result Performing Organization Address City/[facility] Co de Phone Number [facility] CLIA # [id number] [address] [place] [address] documented in this encounter Visit Diagnoses Not on filedocumented in this encounter Care Teams Trolley Car Operator Relationship Specialty Start Date End Date Non-Staff, Physician NO ADDRESS ON FILE PCP - General 12/03/13 documented as of this encounter
--- OUTSIDE RECORDS SUMMARY | 2025-06-29 20:42 | XMS_ITS | Encounter Summary ---
Author Organization [facility] Address [address] [place] [address] Care Team Providers Care Pin Game Machine Inspector Name Role Phone Non-Staff, Physician Primary Care Provider Unava ilable Encounter Details Date Type Department Care Team (Late st Contact Info) Description 06/01/2013 Ancillary Orders [facility] Services [place] [address] [place] [address] Social History Tobacco Use Types Packs/Day Years Used Date Smoking Tobacco: Former Cigarettes Q uit: 08/15/1982 Comments:quit 25 years ago Alcohol Use Standard Drinks/Week Comments Yes 10 (1 standard drink = 0.6 oz pu re alcohol) MONTH Sex and Gender Information Value Date Recorded Sex Assigned at Not on file 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 Gender Identity Not on file Sexual Orientation Not on file documented as of this encounter Plan of Treatment Not on file documented as of this encounter Procedures Procedure Name Priority Date/Time Associated Diagnosis Comments GLUCOSE FASTING Routine 06/01/2013 8:00 AM CDT LIPID PANEL Routine 06/01/2013 8:00 AM CDT documented in this encounter Results * (ABNORMAL) LIPID PANEL (06/01/2013 8:00 AM CDT) CHOLESTEROL 300(H) 130 - 200 mg/dL 06/01/2013 11:28 PM CDT [facility] TRIGLYCERIDE 130 30 - 200 mg/dL 06/01/2013 11:28 PM CDT [facility] [employer] [facility] HDL 48 35 - 80 mg/dL 06/01/2013 11:28 PM CDT [facility] LDL CALCULATED 226(H) 0 - 100 mg/dL 06/01/2013 11:28 PM CDT [facility] Blood specimen (specimen) 06/01/2013 8:00 AM CDT 06/01/2013 10:06 PM CDT Narrative [facility] - 06/01/2013 11:28 PM CDT TOTAL CHOLESTEROL mg/dL Desirable <200 Borderline high 200-239 High >=240 TRIGLYCERIDES mg/dL Normal <150 Borderline high 150-199 High 200-499 Very high >=500 HDL CHOLESTEROL mg/dL Low <40 Normal 40-60 Desirable >60 LDL CHOLESTEROL mg/dL Optimal <100 Low risk 100-129 Borderline high 130-159 High 160-189 Very high >=190 Based on AHA/NCEP Guidelines us External Provider Mtnv CHEMISTRY ORDERABLES Yoon l Result [facility] [employer] [facility] CLIA # [id number] [address] [place] [address] * GLUCOSE FASTING (06/01/2013 8:00 AM CDT) GLUCOSE FASTING 86 74 - 106 mg/dL 06/01/2013 11:28 PM CDT [facility] [employer] [facility] Blood specimen (specimen) 06/01/2013 8:00 AM CDT 06/01/2013 10:06 PM CDT us External Provider Mtnv CHEMISTRY ORDERABLES Yoon l Result [facility] [employer] [facility] CLIA # [id number] [address] [place] [address] documented in this encounter Visit Diagnoses Not on filedocumented in this encounter Care Teams Pin Game Machine Inspector Relationship Specialty Start Date End Date Non-Staff, Physician NO ADDRESS ON FILE PCP - General 12/03/13 documented as of this encounter
--- OUTSIDE RECORDS SUMMARY | 2025-06-29 20:42 | XMS_ITS | Patient Health Record ---
Author Organization [facility] Address [address] [place] [address] Care Team Providers Care Refrigerator Repairman Name Role Phone Wallace Mcdaniels Primary Care Provider Unavailabl e Reason For Referral No Information Plan Of Treatment No Information
[2025-06-29 22:21] VITALS: BP 136/86; PULSE 76; RESP 20; O2SAT 96
--- NOTE | 2025-06-29 22:22 | XRR_ITS ---
PROCEDURE INFORMATION: Exam: XR Right Elbow Exam date and time: 06/29/2025 10:36 PM Age: 64 years old Clinical indication: Right; C/O worsening pain with swelling and redness from MRSA infection. Swelling and redness to posterior aspect of elbow and forearm, worst at elbow. ; Additional info: Cellulitis TECHNIQUE: Imaging protocol: Radiologic exam of the right elbow. Views: 3 or more views. COMPARISON: No relevant prior studies available. FINDINGS: Bones/joints: See Soft tissues finding. Soft tissues: Severe posterior soft tissue swelling, correlate for olecranon bursitis. XR/XR elbow RT min 3V* 31080 IMPRESSION: Severe posterior soft tissue swelling, correlate for olecranon bursitis.
--- NOTE | 2025-06-29 22:22 | ECG_ITS ---
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 Measurements Intervals [place] Rate: 64 P: 48 MI: 170 QRS: 7 QRSD: 88 T: 14 QT: 383 QTc: 397 Interpretive Statements SINUS RHYTHM No previous ECG available for comparison Electronically Signed On 06-30-2025 15:12:44 GYM INSTRUCTOR by Anand Sprague M.D. [email or web address]
[2025-06-29 22:29] VITALS: PULSE 76
[2025-06-29 22:35] VITALS: PULSE 69; RESP 16; O2SAT 96
[2025-06-29 22:38] LABS: Hematocrit 38.8 % (37-53); Hemoglobin 13.20 g/dL (11.27-16.99); Mean Corpuscular HGB Conc 34.0 g/dL (30-55); Mean Corpuscular Hemoglobin 29.6 pg (27-33); Mean Corpuscular Volume 87.0 fl (82-101); Nucleated Red Blood Cells % 0 %; Platelet Count 255 10^3/cmm (157-399); Red Blood Count 4.46 10^6/uL (3.85-5.65); White Blood Count 7.23 10^3/uL (3.29-11.43)
[2025-06-29 22:41] LABS: Glucose Urine UA Negative (Normal); Nitrate Urine Negative (Negative); Specific Gravity, Urine 1.022 (1.005-1.030)
--- NOTE | 2025-06-29 22:41 | XRR_ITS ---
PROCEDURE INFORMATION: Exam: XR Right Forearm Exam date and time: 06/29/2025 10:40 PM Age: 64 years old Clinical indication: Arm, lower; Right; Lower or forearm; C/O worsening pain with swelling and redness from MRSA infection. Swelling and redness to posterior aspect of elbow and forearm, worst at elbow. ; Additional info: Forearm pain and swelling TECHNIQUE: Imaging protocol: Radiologic exam of the right forearm. Views: 2 views. COMPARISON: CR (UP EXM, ) 06/29/2025 10:36 PM FINDINGS: Bones/joints: Normal. Soft tissues: Moderate posterior subcutaneous edema. 1 mm radiopaque foreign body located along the mid forearm subcutaneous fat, in the area of soft tissue swelling. XR/XR forearm RT 2V [id number] IMPRESSION: Moderate posterior subcutaneous edema. 1 mm radiopaque foreign body located along the mid forearm subcutaneous fat, in the area of soft tissue swelling.
[2025-06-29 22:46] LABS: Add Urine Microscopic? YES
[2025-06-29 22:57] LABS: Lactic Sepsis W/Reflex 1.6 mmol/L (0.5-2.2)
[2025-06-29 22:58] LABS: Alanine Aminotransferase 40 U/L (0-41); Albumin Level 3.9 g/dL (3.5-5.2); Alkaline Phosphatase 85 U/L (40-130); Anion Gap 14.6 (5-19); Aspartate Amino Transferase 27 U/L (0-40); Blood Urea Nitrogen 12 mg/dL (8-23); Calcium 9.4 mg/dL (8.5-10.5); Carbon Dioxide 25 mmol/L (22-29); Chloride 103 mmol/L (98-107); Globulin 3.0 g/dL (1.3-4.6); Glucose 115 mg/dL (65-115); Osmolality Calculated 289 mOsm/kg (285-295); Potassium 3.6 mmol/L (3.5-5.1); Sodium 139 mmol/L (136-145); Total Protein 6.9 g/dL (6.6-8.7); Uric Acid 5.2 mg/dL (3.4-7.0)
[2025-06-29 23:22] VITALS: BP 117/61; PULSE 70; O2SAT 99
[2025-06-30] VITALS (9 sets, daily range): BP systolic 115–154; BP diastolic 68–90; PULSE 54–67; RESP 16–18; TEMP 36.3–37; O2SAT 92–96; BMI 26.6
--- NOTE | 2025-06-30 00:11 | W.ED.EXTPRO ---
HPI - Extremity Problem General: Chief complaint: Extremity Problem,Nontraumatic Stated complaint: mrsa worse elbow swelling to wrist Time Seen by Provider: 06/29/25 22:00 History of Present Illness: Patient is a 64-year-old male that presents to the emergency room with 5 days of red swollen right elbow. Content: This started on Tuesday as a will be scabbed. Tuesday: He had more redness surrounding this area and went to [facility]. The area was drained, patient was given an antibiotic shot, and placed on Augmentin He went back on Tuesday, area was draining, he was given an antibiotic shot, and placed on Bactrim DS he was placed on antibiotic shot, and given clindamycin. Tuesday this was confirmed to be MRSA. This culture is not available at this facility. This is per patient history. He states worsening redness. No systemic fever. Worsening swelling. Associated symptoms: Deny chest pain or fever(s) Related Data Home Medications ?Medication ?Instructions ?Recorded ?Confirmed aspirin 81 mg chewable tablet 81 mg PO DAILY 08/16/19 06/25/25 ekejywla-bapbywqi-uycuw acid 400 1 tab PO DAILY 08/16/19 06/25/25 mcg-vit K 20 mcg-lycop 300 mcg tablet (One-A-Day Men's Multivitamin) fluticasone propionate 50 1 spray intranasal DAILY PRN 01/09/25 06/25/25 mcg/actuation nasal Allergy Symptoms spray,suspension (Flonase Allergy Relief) Previous Rx's ?Medication ?Instructions ?Recorded CPAP machine and supplies #1 ea 07/04/23 tizanidine 4 mg tablet 4 mg PO BID PRN muscle spasticity 05/08/24 #60 tabs sucralfate 100 mg/mL oral 10 ml PO BID 30 days #600 mL 01/28/25 suspension pantoprazole 40 mg tablet,delayed 40 mg PO BID #180 tabs 04/01/25 release colesevelam 625 mg tablet See Rx Instructions .Route 05/20/25 .COMPLEX #180 tabs sertraline 50 mg tablet See Rx Instructions .Route 05/20/25 .COMPLEX #90 tabs metoprolol succinate 25 mg 25 mg PO DAILY #90 tabs 05/27/25 tablet,extended release 24 hr amoxicillin 875 mg-potassium 1 tab PO BID #14 tabs 06/25/25 clavulanate 125 mg tablet Allergies Allergy/AdvReac Type Severity Reaction Status Date / Time lovastatin Allergy ADR-Cramping Verified 06/25/25 14:17 of the Muscles Review of Systems General: Reports: 10 or more systems reviewed and unremarkable except in HPI and below Const: Denies: fever(s) or chills Eyes: Denies: change in vision or blurry vision ENMT: Denies: throat pain, mouth pain or dental pain Card: Denies: chest pain, palpitations or swelling of feet/ankles Resp: Denies: dyspnea or non-productive cough GI: Denies: abdominal pain, nausea or vomiting : Denies: flank pain or difficulty urinating Musc: Reports: extremity pain, extremity swelling, joint pain, joint swelling, joint redness, joint stiffness and limited range of motion Neuro: Denies: headache(s) or numbness in extremities Psych: Denies: anxiety or depression PFSH ED PFSH: Medical History (Updated 06/30/25 @ 00:50 by EDMOND Hercules) Esophagitis Hypertension GERD (gastroesophageal reflux disease) Diverticulosis Internal hemorrhoids Surgical History S/P colonoscopy 2019 repeat in 5 years History of esophagogastroduodenoscopy (EGD) 2017 08/2019: esophagitis, path: chronic gastritis Hx of circumcision History of rectal surgery Hx of cholecystectomy Family History Father Cancer esophageal Hypertension Grandfather Cancer brain Grandmother Cancer uterine Family/Other Cancer Colon cancer- Aunt Denies family history of Anesthesia complication Bleeding disorder Social History Smoking and tobacco/nicotine status: former use of tobacco/nicotine (stopped at age 23) Alcohol intake: current Alcohol intake frequency: holidays/special occasions only Substance/Drug Use: never Adopted: No Caregiver/support person: No Lives independently: Yes Household members: spouse Housing: House Marital status: Highest education level completed: High School Graduate Current occupational status: employed Current occupational exposures/hazards: No Pets and animals: No Leisure activites: hunting and fishing Sexually active: Yes Do you think of yourself as: Straight/Heterosexual Current gender identity: Female Hanna/Sabianist: Orthodox Special hanna needs: No Agree to transfusion: No Physical Exam Const: COMMON NORMALS: no acute distress, average body habitus and patient oriented x3 HENMT: COMMON NORMALS: normocephalic, atraumatic, hearing grossly normal bilaterally and TM's normal bilaterally HEAD & SCALP: normocephalic and atraumatic TYMPANIC MEMBRANE: TM's normal bilaterally Neck/C-Spine: COMMON NORMALS: full ROM, no lymphadenopathy, supple and no meningeal signs Lymph: LYMPHATIC: no lymphadenopathy noted Chest: COMMONS NORMALS: normal inspection of the chest and normal palpation of entire chest wall Resp: COMMON NORMALS: normal respiratory effort, No retractions and No use of accessory muscles Cardio: COMMON NORMALS: regular rate and regular rhythm RATE: regular rate RHYTHM: regular rhythm Extremity: NARRATIVE EXTREMITY EXAM: Large area to elbow that has swelling and fluctuance, induration, with surrounding area of redness that as outlined. EXTREMITY IMAGE (BACK):  1. Redness edema Neuro: COMMON NORMALS: patient oriented x3 MENINGEAL SIGNS: Yes no meningeal signs Psych: COMMON NORMALS: mental status grossly normal, Normal thought process present and cooperative THOUGHT PROCESS: Normal thought process present Course Vital Signs: Vital signs: Vital Signs Temperature 98.3 F 06/29/25 20:41 Pulse Rate 70 06/29/25 23:22 Respiratory Rate 18 06/30/25 00:30 Blood Pressure 117/61 06/29/25 23:22 Pulse Oximetry 94 06/30/25 00:30 Oxygen Delivery Me thod Room Air 06/29/25 22:35 MDM - Extremity (Nontraumatic) Medical Decision Making Discussed with hospitalist, Dr. Gutierres, accepted admission. At this juncture, patient has failed outpatient antibiotics. Medical Records I reviewed the patient's medical records. Lab Data I reviewed the patient's lab results. 06/29/25 22:27 06/29/25 22:27 Radiology Impressions Elbow X-Ray 06/29/25 22:22 IMPRESSION: Severe posterior soft tissue swelling, correlate for olecranon bursitis. Forearm X-Ray 06/29/25 22:41 IMPRESSION: Moderate posterior subcutaneous edema. 1 mm radiopaque foreign body located along the mid forearm subcutaneous fat, in the area of soft tissue swelling. Laboratory Results WBC 7.23 10^3/uL (3.29-11.43) 06/29/25: RBC 4.46 10^6/uL (3.85-5.65) 06/29/25: Hgb 13.20 g/dL (11.27-16.99) 06/29/25: Hct 38.8 % (37-53) 06/29/25: MCV 87.0 fl (82-101) 06/29/25: MCH 29.6 pg (27-33) 06/29/25: MCHC 34.0 g/dL (30-55) 06/29/25: RDW 13.2 % (12.1-15.1) 06/29/25 Plt Count 255 10^3/cmm (157-399) 06/29/25: MPV 8.7 fL (7.4-10.4) 06/29/25: Neut % (Auto) 67.8 % 06/29/25: Lymph % (Auto) 17.6 % 06/29/25: [place] % (Auto) 10.8 % 06/29/25: Eos % (Auto) 2.9 % 06/29/25: Baso % (Auto) 0.6 % 06/29/25: Neut # (Auto) 4.91 10^3/uL (1.8-7.7) 06/29/25: Lymph # (Auto) 1.3 10^3/uL (0.8-4.8) 06/29/25: [place] # (Auto) 0.8 10^3/uL (0.2-0.9) 06/29/25: Eos # (Auto) 0.2 10^3/uL (0.0-0.8) 06/29/25: Baso # (Auto) 0.0 10^3/uL (0.0-0.1) 06/29/25: Nucleated RBC % (auto) 0 % 06/29/25: Nucleated RBCs # 0.0 /100WBC 06/29/25: Sodium 139 mmol/L (136-145) 11/15/25 22:27 Potassium 3.6 mmol/L (3.5-5.1) 06/29/25 22: Chloride 103 mmol/L (98-107) 06/29/25 22: Carbon Dioxide 25 mmol/L (22-29) 06/29/25 22: Anion Gap 14.6 (5-19) 06/29/25 22: BUN 12 mg/dL (8-23) 06/29/25: Creatinine 1.0 mg/dL (0.7-1.2) 06/29/25 22: GFR Calculation 75.7 mL/min (90-130) L 06/29/25 22: Glucose 115 mg/dL (65-115) 06/29/25: Calculated Osmolality 289 mOsm/kg (285-295) 06/29/25 22: Lactic Acid 1.6 mmol/L (0.5-2.2) 06/29/25: Uric Acid 5.2 mg/dL (3.4-7.0) 06/29/25: Calcium 9.4 mg/dL (8.5-10.5) 06/29/25: Total Bilirubin 0.3 mg/dL (0.15-1.2) 06/29/25: AST 27 U/L (0-40) 06/29/25: ALT 40 U/L (0-41) 06/29/25: Alkaline Phosphatase 85 U/L (40-130) 06/29/25: C-Reactive Protein 56.5 mg/L (0.0-4.9) H 06/29/25: Total Protein 6.9 g/dL (6.6-8.7) 06/29/25: Albumin 3.9 g/dL (3.5-5.2) 06/29/25: Globulin 3.0 g/dL (1.3-4.6) 06/29/25 22: Urine Color Yellow (Yellow) 06/29/25 22: Urine Appearance Clear (CLEAR) 06/29/25 22: Urine pH 5.5 (5-7) 06/29/25: Ur Specific [place] 1.022 (1.005-1.030) 06/29/25: Urine Protein Negative (Negative) 06/29/25: Urine Glucose (UA) Negative (Normal) 06/29/25: Urine Ketones Negative (Negative) 06/29/25: Urine Blood Trace (Negative) A 06/29/25: Urine Nitrate Negative (Negative) 06/29/25: Urine Bilirubin Negative (Negative) 06/29/25: Urine Urobilinogen 1.0 mg/dL (Negative) 06/29/25: Ur Leukocyte Esterase Negative (Negative) 06/29/25: Urine RBC 0-2 /hpf (0-2) 06/29/25: Urine WBC 0-5 /hpf (0-5) 06/29/25: Ur Squamous Epith Cells 0-5 /hpf (0-5) 06/29/25: Amorphous Sediment Not Reportable 06/29/25: Urine Bacteria None seen /hpf (NONE) 06/29/25: Hyaline Casts 0.40 /lpf 06/29/25 22: XR interpretation done by ED provider, pending radiology final review EKG Data EKG 1: Interpretation: Normal sinus rhythm, normal axis Discharge Plan Discharge Patient Disposition: Admitted As Inpatient Admit Provider: Christine Meyer Clinical Impression: Cellulitis of right elbow Condition: Stable Coding Level of Care Code ED Government Documents Librarian for Mario Vines
[2025-06-30] MEDS: morphine 4 mg/mL SDV 1 mL IVP (00:30)
[2025-06-30] MEDS: ondansetron 2 mg/ML SDV 2 mL 4 MG IVP (00:32)
[2025-06-30] MEDS: piperacillin-tazobactam 4.5 GM in sodium chloride 0.9% (plus) 50 ML IV (00:35)
--- NOTE | 2025-06-30 00:45 | PM.HP ---
Providers/Chief Complaint Admitting Physician: Christine Meyer DO Primary Care Provider: PATRICIO Tran Chief Complaint: mrsa worse elbow swelling to wrist History of Present Illness Luis Sorensen is a 64 year old male Medications/Allergies Home Medications ?Medication ?Instructions ?Recorded ?Confirmed ?Last Taken ?Type aspirin 81 mg chewable tablet 81 mg PO DAILY 08/16/19 06/25/25 01/09/25 History hgropszp-diqpvoys-rjymp acid 400 1 tab PO DAILY 08/16/19 06/25/25 01/14/25 History mcg-vit K 20 mcg-lycop 300 mcg tablet (One-A-Day Men's Multivitamin) CPAP machine and supplies #1 ea 07/04/23 06/25/25 Unknown Rx tizanidine 4 mg tablet 4 mg PO BID PRN muscle spasticity 05/08/24 06/25/25 01/14/25 Rx #60 tabs fluticasone propionate 50 1 spray intranasal DAILY PRN 01/09/25 06/25/25 01/14/25 History mcg/actuation nasal Allergy Symptoms spray,suspension (Flonase Allergy Relief) sucralfate 100 mg/mL oral 10 ml PO BID 30 days #600 mL 01/28/25 06/25/25 Unknown Rx suspension pantoprazole 40 mg tablet,delayed 40 mg PO BID #180 tabs 04/01/25 06/25/25 Unknown Rx release colesevelam 625 mg tablet See Rx Instructions .Route 05/20/25 06/25/25 Unknown Rx .COMPLEX #180 tabs sertraline 50 mg tablet See Rx Instructions .Route 05/20/25 06/25/25 Unknown Rx .COMPLEX #90 tabs metoprolol succinate 25 mg 25 mg PO DAILY #90 tabs 05/27/25 06/25/25 Unknown Rx tablet,extended release 24 hr amoxicillin 875 mg-potassium 1 tab PO BID #14 tabs 06/25/25 06/25/25 Unknown Rx clavulanate 125 mg tablet Allergies Allergy/AdvReac Type Severity Reaction Status Date / Time lovastatin Allergy ADR-Cramping Verified 06/25/25 14:17 of the Muscles PFSH Acute PFSH: Medical History (Updated 06/25/25 @ 14:30 by PATRICIO Doherty) Esophagitis Hypertension GERD (gastroesophageal reflux disease) Diverticulosis Internal hemorrhoids Surgical History S/P colonoscopy 2019 repeat in 5 years History of esophagogastroduodenoscopy (EGD) 2017 08/2019: esophagitis, path: chronic gastritis Hx of circumcision History of rectal surgery Hx of cholecystectomy Family History Father Cancer esophageal Hypertension Grandfather Cancer brain Grandmother Cancer uterine Family/Other Cancer Colon cancer- Aunt Denies family history of Anesthesia complication Bleeding disorder Social History Smoking and tobacco/nicotine status: former use of tobacco/nicotine (stopped at age 23) Alcohol intake: current Alcohol intake frequency: holidays/special occasions only Substance/Drug Use: never Adopted: No Caregiver/support person: No Lives independently: Yes Household members: spouse Housing: House Marital status: Highest education level completed: High School Graduate Current occupational status: employed Current occupational exposures/hazards: No Pets and animals: No Leisure activites: hunting and fishing Sexually active: Yes Do you think of yourself as: Straight/Heterosexual Current gender identity: Female Hanna/Gnosticist: Holiness Special hanna needs: No Agree to transfusion: No Vitals/I&O/Wt Last Vital Signs Temp 98.3 F 06/29/25 20:41 Pulse 70 06/29/25 23:22 Resp 18 06/30/25 00:30 BP 117/61 06/29/25 23:22 Pulse Ox 94 06/30/25 00:30 O2 Del Method Room Air 06/29/25 22:35 06/29/25 06/29/25 06/30/25 14:59 22:59 06:59 Intake Total 1000 / 1000 Balance 1000 / 1000 Weight last 48 hrs Weight 81.647 kg Data 06/29/25 22:27 06/29/25 22:27 A&P Assessment and plan 1. Cellulitis of right upper extremity: Plan: START OF MEDICAL REPORT Christine Meyer D.O. Board Certified Internal Medicine Chief Complaint: Right arm pain History of Present Illness: The patient is a 64-year-old male who present chief complaint of pain of his right arm/right elbow which are possibly 5 days prior to hospitalization. He states originally he developed what appears to be a small scab on his right elbow. 4 days prior to hospitalization it appears that he underwent arthrocentesis. Patient was administered an IM antibiotic and also Augmentin which he states he has been compliant with. 3 days prior to hospitalization, he states that he underwent another arthrocentesis. He denies any inciting trauma or injury to his right elbow. He missed onset rigors, nausea, vomiting. He denies fever. He states that his right elbow is erythematous, warm to palpation, and tender to palpation with a currently rating 5 out of 10. He presents for further evaluation I have explained to the patient (if they are coherent, able to comprehend, and/or are communicative) and/or their family member(s), friend(s), guardian(s), and/or other individual(s) present on the patient?s behalf (if present) the patient?s current medical condition, the patient?s current plan of care, and I have answered all questions posed to me. Family History: Cancer Physical Examination: General: -Alert. -No acute distress. -No dyspnea. -No tachypnea. Head: -Atraumatic. -Normocephalic. Eyes: -Pupils equally round and reactive to light and accommodation. -Extraocular muscles intact. Neurological: -Cranial nerves II-XII intact. Neck: -No jugular venous distention. -No thyromegaly. -No cervical lymphadenopathy. Heart: -Regular rate. -Regular rhythm. -No murmurs. -No gallops. -No rubs. Lungs: -No wheeze. -No rhonchi. -No rales. Abdomen: -Normal bowel sounds in all four quadrants. -No rebound. -No guarding. -No tenderness. Extremities: -2/4 pulse in all four extremities. -No clubbing. -No cyanosis. -No calf tenderness present bilaterally. -Negative Wilma?s sign bilaterally. Musculoskeletal: -5/5 bilateral upper extremity strength. -5/5 bilateral lower extremity strength. -Sensorium of bilateral upper extremities are equal and intact. -Sensorium of bilateral lower extremities are equal and intact. Additional Details / Additional Findings / Exceptions / Miscellaneous: There is erythema of the right elbow present, with tenderness to palpation, and warmth palpated as well. There is thickening of the skin of the joint Pertinent Laboratory Results / Pertinent Radiology Results / Pertinent Diagnostic Results / Pertinent Vital Signs: Blood pressure 117/61, heart rate 70, respirations 16, temperature 98.3?, 9% room air Social History: Caffeine: Coffee Tobacco: Never Alcohol: Rare Pets: Yes + Allergies: Lovastatin Code Status: DNR, DNI Admission Date: 12:43 AM on June 30, 2025 Discharge Date: History of Present Illness / Hospital Course Summary: The patient is a 64-year-old male who present chief complaint of pain of his right arm/right elbow which are possibly 5 days prior to hospitalization. He states originally he developed what appears to be a small scab on his right elbow. 4 days prior to hospitalization it appears that he underwent arthrocentesis. Patient was administered an IM antibiotic and also Augmentin which he states he has been compliant with. 3 days prior to hospitalization, he states that he underwent another arthrocentesis. He denies any inciting trauma or injury to his right elbow. He missed onset rigors, nausea, vomiting. He denies fever. He states that his right elbow is erythematous, warm to palpation, and tender to palpation with a currently rating 5 out of 10. He presents for further evaluation Surgical History: Circumcision, rectal fissurectomy, cholecystectomy Assessment / Plan + Medical History: Right elbow bursitis with overlying cellulitis. Check blood culture ?2. Nursing staff order to demarcate and date origin of erythema daily. Elevate right upper extremity. Will provide when necessary analgesia. Clindamycin 600 mg IV every 6 hours Obstructive sleep apnea Muscle spasm Depression Seasonal allergies GERD with history of esophagitis Hyperlipidemia Hypertension Spinal stenosis History of immature ventricular contractions Osteoarthritis Anxiety Diverticulosis Neuropathy History of thyroid nodule. Patient will need to schedule thyroid ultrasound for January 2025 with his primary care physician or a provider Degenerative disc disease DVT prophylaxis. Bilateral SCD Consultations: None Disposition: Anticipate discharge in 72-96 hours History of thyroid nodule. Patient will need to schedule thyroid ultrasound for January 2025 with his primary care physician or a provider + Discharge Diet: Cardiac, 2 g sodium Discharge Activity: Discharge Condition: Discharge Medications: Time Spent with Patient: Greater than 30 minutes. Christine Meyer D.O. Board Certified Internal Medicine END OF MEDICAL REPORT PDMP PDMP Reviewed: Not Reviewed Attestations Medical Necessity Statement*: IV Abx required Coding Level of Care Code Acute Code for Chg Fwd Diagnoses Cellulitis of right upper extremity L03.113 Site of cellulitis: extremity Site of cellulitis of extremity: upper extremity Laterality: right
--- NOTE | 2025-06-30 07:40 | P.PN_ITS ---
Subjective 2 Subjective: Patient is a very pleasant 64-year-old male seen and examined at bedside on hospital rounds today. Patient seen up in bed with continued right elbow pain and mild headache, denies new or worsening symptoms. Spoke with infectious disease Dr. Levi who has graciously agreed for consultation and management of antibiotic therapy. Patient states that he had right elbow drained twice at urgent care with 1 culture positive for MRSA. Also spoke with orthopedic surgeon Dr. Iverson who also graciously agrees for orthopedic surgical consultation and management, no plans for surgical intervention currently. Patient stable WBC, stable vital signs. Will need continued inpatient interventions with IV antibiotic therapy pending culture results and tailoring antibiotics appropriately. All questions and concerns addressed with the patient at the bedside today. Vitals/I&O/Wt Last Vital Signs Temp 97.7 F 06/30/25 07:29 Pulse 66 06/30/25 07:29 Resp 18 06/30/25 07:29 BP 130/80 06/30/25 07:29 Pulse Ox 96 06/30/25 07:29 O2 Del Method Room Air 06/30/25 07:29 06/29/25 06/30/25 06/30/25 22:59 06:59 14:59 Intake Total 1050 / 1050 Balance 1050 / 1050 Weight last 48 hrs Weight 83.143 kg Weight 81.647 kg Weight 81.647 kg Physical Exam 2 Const: COMMON NORMALS: no acute distress, patient oriented x3 and well nourished HENMT: COMMON NORMALS: normocephalic, Normal external nose present and moist oral mucous membranes HEAD & SCALP: normocephalic NOSE: Normal external nose present Eye: COMMON NORMALS: Equal, round and reactive pupils present PUPIL: Yes Equal, round and reactive pupils present Resp: COMMON NORMALS: normal respiratory effort and clear to auscultation bilaterally AUSCULTATION: clear to auscultation bilaterally Cardio: COMMON NORMALS: regular rate, regular rhythm, S1 normal heart sound present and S2 normal heart sound present RATE: regular rate RHYTHM: r egular rhythm HEART SOUNDS: S1 normal heart sound present and S2 normal heart sound present GI: COMMON NORMALS: Normal to inspection, nondistended, normoactive bowel sounds present Extremity: RIGHT UPPER EXTREMITY: Yes elbow joint (Edema and erythema, decreased range of motion) Neuro: COMMON NORMALS: patient oriented x3 and CN's II-XII intact bilaterally Psych: COMMON NORMALS: mental status grossly normal Skin: OTHER: Erythema and edema noted right forearm right elbow, Borders drawn, erythema within borders Data 06/29/25 22:27 06/29/25 22:27 A&P Assessment and plan 1. Cellulitis of right elbow: 2. Olecranon bursitis: 3. Obstructive sleep apnea: 4. Generalized anxiety disorder: 5. Hypertension: 6. GERD (gastroesophageal reflux disease): Plan: Cellulitis, right elbow Olecranon bursitis - WBC 7.23, C-reactive protein 56.5, pending blood culture x 2 - Will need outpatient fluid cultures (patient states +MRSA) - Was treated outpatient with oral Keflex, Bactrim, clindamycin - Given 1 dose IV vancomycin, Zosyn, clindamycin at time of admission - Greatly appreciate infectious disease consultation management with Dr. Davis who start the patient on IV cefepime and vancomycin managed by pharmacy - Greatly appreciate orthopedic surgical consultation management with Dr. Iverson - Multimodal pain control LAURYN - Supportive measures Anxiety/Depression - Continue home dosing Sertraline Hypertension Hyperlipidemia - Blood pressure 129/75 - Continue home dosing cardio-protective medications - Monitor GERD - Continue PPI DVT PPX: SCD's GI PPX: PPI Code Status: Allow Natural PDMP PDMP Reviewed: Not Reviewed Attestations 2 Medical Necessity Statement*: Will continue current interventions and patient crossing 2 midnights due to severity of illness due to spreading cellulitis and olecranon bursitis which requires continued IV antibiotic therapy, pending cultures, infectious disease and orthopedic surgical consultation. Coding Level of Care Code 45144 Diagnoses Cellulitis of right elbow L03.113 Olecranon bursitis M70.20 Obstructive sleep apnea G47.33 Generalized anxiety disorder F41.1 Hypertension I10 GERD (gastroesophageal reflux disease) K21.9
--- NOTE | 2025-06-30 08:27 | PC.PHAR ---
Pt has had several antibiotics prescribed recently but has been instructed to stop taking all of them. They are: Augmentin 875-bid 06/25/25 7ds Bactrim DS-bid 06/28/25 7ds Cefdinir 300-bid-06/27/25 7ds Cleocin 300-qid-06/26/25 7ds
[2025-06-30] MEDS: cefepime 1,000 mg SDV 1000 MG IVP ×2 (11:12→17:21)
--- NOTE | 2025-06-30 12:27 | PM.CONSULT ---
Providers/Reason For Consult Consulting Physician/Specialty*: Ginna Iverson MD Reason for Consult*: Right elbow cellulitis Requesting Physician: Christine Meyer DO Attending Physician: Christin Conde NP Primary Care Provider: PATRICIO Tran History of Present Illness History of Present Illness Luis Sorensen is a 64 year old male who is actually known to me after having been evaluated for left shoulder and elbow issues approximately 3 years ago. Patient presented to the emergency department after failed treatment of inflammation and cellulitis of the right elbow. Patient noted worsening symptoms and spite of oral antibiotic and intramedullary antibiotic administered at the urgent care. Reportedly, he had 2 aspirations of the olecranon bursa, and he was advised that he has MRSA. He was admitted in the lead programmer hours today. Patient's antibiotics will be switched under the advice of Dr. Davis who reportedly will be holding telehealth with the patient today. Review of Systems General: Reports: 10 or more systems reviewed and unremarkable except in HPI and below Const: Denies: fever(s) or chills Eyes: Denies: change in vision or blurry vision ENMT: Denies: throat pain, mouth pain or dental pain Card: Denies: chest pain, palpitations or swelling of feet/ankles Resp: Denies: dyspnea or non-productive cough GI: Denies: abdominal pain, nausea or vomiting : Denies: flank pain or difficulty urinating Musc: Reports: extremity pain, extremity swelling, joint pain, joint swelling, joint redness, joint stiffness and limited range of motion Neuro: Denies: headache(s) or numbness in extremities Psych: Denies: anxiety or depression Medications/Allergies Home Medications ?Medication ?Instructions ?Recorded ?Confirmed ?Last Taken ?Type aspirin 81 mg chewable tablet 81 mg PO DAILY 08/16/19 06/30/25 06/29/25 History fxhxwjty-ltbnmhhu-ppuya acid 400 1 tab PO DAILY 08/16/19 06/30/25 06/29/25 History mcg-vit K 20 mcg-lycop 300 mcg tablet (One-A-Day Men's Multivitamin) CPAP machine and supplies #1 ea 07/04/23 06/30/25 Unknown Rx pantoprazole 40 mg tablet,delayed 40 mg PO BID #180 tabs 04/01/25 06/30/25 06/29/25 Rx release amoxicillin 875 mg-potassium 1 tab PO BID #14 tabs 06/25/25 06/30/25 Unknown Rx clavulanate 125 mg tablet colesevelam 625 mg tablet 1,250 mg PO DAILY 06/30/25 06/30/25 Unknown History metoprolol succinate 25 mg 25 mg PO QPM 06/30/25 06/30/25 06/28/25 History tablet,extended release 24 hr ondansetron 8 mg disintegrating 8 mg PO TID PRN Nausea And Vomiting 06/30/25 06/30/25 Unknown History tablet sertraline 50 mg tablet 50 mg PO DAILY 06/30/25 06/30/25 06/29/25 History Allergies Allergy/AdvReac Type Severity Reaction Status Date / Time lovastatin Allergy ADR-Cramping Verified 06/25/25 14:17 of the Muscles Current Medications Generic Name Dose Route Start Last Admin Trade Name Freq PRN Reason Stop Dose Admin Acetaminophen 650 mg 06/30/25 03:22 06/30/25 08:19 Acetaminophen 325 Mg Tablet PO 650 mg Q6H PRN Administration Mild/Mod Pain Or Temp >/= 101 Cefepime HCl 1,000 mg 06/30/25 09:15 06/30/25 11:12 Cefepime 1,000 Mg Sdv IVP 1,000 mg Q8H NATALIA Administration Protocol PFSH Acute PFSH: Medical History Esophagitis Hypertension GERD (gastroesophageal reflux disease) Diverticulosis Internal hemorrhoids Surgical History S/P colonoscopy 2019 repeat in 5 years History of esophagogastroduodenoscopy (EGD) 2017 08/2019: esophagitis, path: chronic gastritis Hx of circumcision History of rectal surgery Hx of cholecystectomy Family History Father Cancer esophageal Hypertension Grandfather Cancer brain Grandmother Cancer uterine Family/Other Cancer Colon cancer- Aunt Denies family history of Anesthesia complication Bleeding disorder Social History Smoking and tobacco/nicotine status: former use of tobacco/nicotine (stopped at age 23) Alcohol intake: current Alcohol intake frequency: holidays/special occasions only Substance/Drug Use: never Adopted: No Caregiver/support person: No Lives independently: Yes Household members: spouse Housing: House Marital status: Highest education level completed: High School Graduate Current occupational status: employed Current occupational exposures/hazards: No Pets and animals: No Leisure activites: hunting and fishing Sexually active: Yes Do you think of yourself as: Straight/Heterosexual Current gender identity: Female Hanna/Buddhist: Tenriism Special hanna needs: No Agree to transfusion: No Dietary Habits: Current diet type/program: regular Caffeine: Yes High-fat food intake: 2 times daily Daily servings fruits/vegetables: 0-1 Daily servings of milk/calcium: 0-1 Eating out: rarely or never Reads food labels: usually or always During the past year weight has: remained stable Exercise: What type of physical activity do you participate in?: none and walking Physical activity functional status: independent ambulation How many days of moderate to strenuous exercise, like a brisk walk, did you do in the last 7 days: 0 Safety: Seatbelt use: always Helmet use: No Drive intoxicated or ride with intoxicated sprinkling truck driver?: never Home Safety: Water heater temperature set < 120 degrees: No Working smoke detector in home: Yes Fire extinguisher in home: No Carbon monoxide detector in home: No Firearms in home: Yes Personal Safety: Do you feel safe at home: No Victim of physical abuse: No Victim of emotional abuse: No Victim of sexual abuse: No Would you like help information on resources?: No NHANES Social Connection/Isolation: Are you now , , , , never or living with a partner?: In a typical week, how many times do you talk on the telephone with family, friends, or neighbors?: Once per Week How often do you get together with friends or relatives?: Once per Week Do you belong to any clubs or organizations such as faith groups unions, fraternal or athletic groups, or school groups?: No Social isolation score (0-1 are the most socially isolated patients): 1 Social isolation score reviewed/action taken: No Vitals/I&O/Wt Last Vital Signs Temp 97.9 F 06/30/25 11:30 Pulse 62 06/30/25 11:30 Resp 16 06/30/25 11:30 BP 129/75 06/30/25 11:30 Pulse Ox 93 06/30/25 11:30 O2 Del Method Room Air 06/30/25 11:30 06/29/25 06/30/25 06/30/25 22:59 06:59 14:59 Intake Total 1050 / 1050 780 / 780 Balance 1050 / 1050 780 / 780 Weight last 48 hrs Weight 183 lb 4.8 oz Weight 180 lb Weight 180 lb Physical Exam Const: COMMON NORMALS: no acute distress, average body habitus, patient oriented x3 and alert GENERAL APPEARANCE: cooperative and comfortable ORIENTATION/CONSCIOUSNESS: Yes awake HENMT: COMMON NORMALS: normocephalic and atraumatic HEAD & SCALP: normocephalic and atraumatic Eye: GENERAL EYE: appearance normal, both eyes and all related structures Chest: COMMONS NORMALS: normal inspection of the chest Resp: COMMON NORMALS: normal respiratory effort EFFORT & INSPECTION: Yes able to speak in complete sentences and Yes symmetric chest movement Extremity: RIGHT UPPER EXTREMITY: Yes elbow joint (The elbow appears red, and there is a delineation line) Right elbow: Yes palpation (There is some fluctuance of the olecranon bursa), Yes ROM (Able to move the elbow with minimal discomfort), Yes neurovascular exam (Intact distally) and Yes other (The erythema appears to be inside of the line delineating erythema.) Neuro: COMMON NORMALS: patient oriented x3 SENSORIUM/ORIENTATION: Yes alert Psych: COMMON NORMALS: mental status grossly normal APPEARANCE: Yes grossly normal ATTITUDE: Yes calm and Yes engaged ATTENTION/CONCENTRATION: Yes attention grossly intact Skin: COMMON NORMALS: no rashes or lesions noted GENERAL SKIN EXAM: no rashes or lesions noted Data 06/29/25 22:27 06/29/25 22:27 Xray Ortho: My impression: Patient had imaging of the right elbow and forearm. There is soft tissue swelling apparent. There is mild degenerative osteoarthritic change as well. There is a small metallic foreign body not noted in the mid aspect of the forearm, but the patient describes symptoms as beginning in the elbow, and this is likely chronic. A&P Assessment and plan 1. Olecranon bursitis of right elbow: Patient has significant right elbow and forearm cellulitis with underlying bursitis. At this point, antibiotics are being changed to reflect the cultures which were obtained as an outpatient. These demonstrate MRSA, so the patient will have appropriate antibiotics for the MRSA as directed by Dr. Davis. We will continue to monitor the patient. At this point no further imaging or surgical procedures are planned. 2. Cellulitis of right elbow: 3. Cellulitis of right upper extremity: PDMP PDMP Reviewed: Not Reviewed Consult Attestations Medical Necessity Statement: Per hospitalist team Coding Level of Care Code Acute Code for Chg Fwd Diagnoses Olecranon bursitis of right elbow M70.21 Laterality: right Cellulitis of right elbow L03.113 Cellulitis of right upper extremity L03.113 Site of cellulitis: extremity Site of cellulitis of extremity: upper extremity Laterality: right
--- NOTE | 2025-06-30 13:32 | PM.CONSULT ---
Providers/Reason For Consult Consulting Physician/Specialty*: Marcelle davis MD/ Infectious Disease Reason for Consult*: olecrenon bursitis Requesting Physician: Christin Conde NP Attending Physician: Christin Conde NP Primary Care Provider: PATRICOI Tran History of Present Illness History of Present Illness Luis Sorensen is a 64 year old male with a past medical history of chronic back pain, recently diagnosed with right upper extremity cellulitis on September 25, 2024 on an [facility] urgent care visit when he developed swelling over his right elbow. He was diagnosed with right elbow bursa cellulitis, received 1 g Rocephin and was prescribed Augmentin on this day. His swelling continued to worsen, he did not tolerate the oral Augmentin well and he visited [facility] on Tuesday (today is Tuesday) , where per review of notes a 5 cc abscess was drained. Culture showed MRSA per results called into the patient. Culture results are not currently available to us for review. Reportedly the sensitivity was pending. He was additionally started on Bactrim DS twice daily which he took over the next 2 days. On Tuesday, swelling continued to worsen and reportedly had underwent a second aspiration on this day. Clindamycin was additionally added to his regimen. No crystal analysis is available. There is no known history of gout. Patient reports on September 24, 2024, he had a poke to the area of the right elbow and over the next day initially his arm became stiff and then started to become swollen. X-ray of the forearm showed 1 mm radiopaque foreign body located along the mid forearm subcutaneous fat in the area of the soft tissue swelling. He reports subjective fever and chills with sweats. Has not had a fever here during the course of his admission. He is not a known diabetic. Last HbA1c from August 2024 is at 5.3. CRP available from [facility] was at 110, repeated here in the ER at 53. Blood cultures so far negative to date. Review of Systems General: Reports: 10 or more systems reviewed and unremarkable except in HPI and below Const: Reports: chills and body aches; Denies: fever(s) Eyes: Denies: change in vision, blurry vision or photophobia ENMT: Reports: hoarseness; Denies: throat pain, enlarged tonsils, odynophagia or nasal congestion Card: Denies: chest pain, palpitations, irregular heart rhythm, edema, swelling of feet/ankles, lightheadedness, pre-syncope, dyspnea on exertion or orthopnea Resp: Denies: dyspnea, productive cough, non-productive cough, wheezing, stridor, pain on inspiration, change in phlegm color, hemoptysis or chest congestion GI: Denies: abdominal pain, nausea, vomiting, hematemesis, coffee ground emesis, dysphagia, heartburn, diarrhea, constipation, GI cramping, change in stool character, hematochezia or melena : Denies: flank pain, dysuria, urinary frequency, urinary urgency, urinary hesitancy or hematuria Musc: Denies: neck pain, back pain, extremity pain, joint swelling, joint warmth or deformity Neuro: Denies: headache(s), numbness in extremities, weakness in extremities, sensory changes, difficulty walking, frequent falls, dizziness, vertigo, behavioral changes, Slurred speech present or seizure-like activity Psych: Denies: anxiety, depression, suicidal ideation or homicidal ideation Endo: Denies: polyuria, polydipsia, tired all the time, cold intolerance or hot flashes [place]/Lymph: Denies: easy bruising or easy bleeding Medications/Allergies Home Medications ?Medication ?Instructions ?Recorded ?Confirmed ?Last Taken ?Type aspirin 81 mg chewable tablet 81 mg PO DAILY 08/16/19 06/30/25 06/29/25 History kidirxrm-zhexhqir-lawac acid 400 1 tab PO DAILY 08/16/19 06/30/25 06/29/25 History mcg-vit K 20 mcg-lycop 300 mcg tablet (One-A-Day Men's Multivitamin) CPAP machine and supplies #1 ea 07/04/23 06/30/25 Unknown Rx pantoprazole 40 mg tablet,delayed 40 mg PO BID #180 tabs 04/01/25 06/30/25 06/29/25 Rx release amoxicillin 875 mg-potassium 1 tab PO BID #14 tabs 06/25/25 06/30/25 Unknown Rx clavulanate 125 mg tablet colesevelam 625 mg tablet 1,250 mg PO DAILY 06/30/25 06/30/25 Unknown History metoprolol succinate 25 mg 25 mg PO QPM 06/30/25 06/30/25 06/28/25 History tablet,extended release 24 hr ondansetron 8 mg disintegrating 8 mg PO TID PRN Nausea And Vomiting 06/30/25 06/30/25 Unknown History tablet sertraline 50 mg tablet 50 mg PO DAILY 06/30/25 06/30/25 06/29/25 History Allergies Allergy/AdvReac Type Severity Reaction Status Date / Time lovastatin Allergy ADR-Cramping Verified 06/25/25 14:17 of the Muscles Current Medications Generic Name Dose Route Start Last Admin Trade Name Freq PRN Reason Stop Dose Admin Acetaminophen 650 mg 06/30/25 03:22 06/30/25 08:19 Acetaminophen 325 Mg Tablet PO 650 mg Q6H PRN Administration Mild/Mod Pain Or Temp >/= 101 Cefepime HCl 1,000 mg 06/30/25 09:15 06/30/25 11:12 Cefepime 1,000 Mg Sdv IVP 1,000 mg Q8H NATALIA Administration Protocol Vancomycin HCl 1,250 mg in 250 mls @ 166.667 mls/hr 06/30/25 12:30 06/30/25 13:12 Vancocin IV 166.67 mls/hr Q12H NATALIA Administration Additional Medication Information Received piperacillin/tazobactam and vancomycin overnight in the emergency room Thereafter received 1 dose of clindamycin Previously on Augmentin Bactrim and clindamycin. PFSH Acute PFSH: Medical History Esophagitis Hypertension GERD (gastroesophageal reflux disease) Diverticulosis Internal hemorrhoids Surgical History S/P colonoscopy 2019 repeat in 5 years History of esophagogastroduodenoscopy (EGD) 2017 08/2019: esophagitis, path: chronic gastritis Hx of circumcision History of rectal surgery Hx of cholecystectomy Family History Father Cancer esophageal Hypertension Grandfather Cancer brain Grandmother Cancer uterine Family/Other Cancer Colon cancer- Aunt Denies family history of Anesthesia complication Bleeding disorder Social History Smoking and tobacco/nicotine status: former use of tobacco/nicotine (stopped at age 23) Alcohol intake: current Alcohol intake frequency: holidays/special occasions only Substance/Drug Use: never Adopted: No Caregiver/support person: No Lives independently: Yes Household members: spouse Housing: House Marital status: Highest education level completed: High School Graduate Current occupational status: employed Current occupational exposures/hazards: No Pets and animals: No Leisure activites: hunting and fishing Sexually active: Yes Do you think of yourself as: Straight/Heterosexual Current gender identity: Female Hanna/Adventist: Jehovah'S Witness Special hanna needs: No Agree to transfusion: No Vitals/I&O/Wt Last Vital Signs Temp 97.9 F 06/30/25 11:30 Pulse 62 06/30/25 11:30 Resp 16 06/30/25 11:30 BP 129/75 06/30/25 11:30 Pulse Ox 93 06/30/25 11:30 O2 Del Method Room Air 06/30/25 11:30 06/29/25 06/30/25 06/30/25 22:59 06:59 14:59 Intake Total 1050 / 1050 780 / 780 Balance 1050 / 1050 780 / 780 Weight last 48 hrs Weight 83.143 kg Weight 81.647 kg Weight 81.647 kg Physical Exam Narrative: General: No acute distress, AO x3 HEENT: PERRLA, pupils bilaterally equal and reactive, pallors not present Neuro: No focal deficits, no facial deformity, AO x3, power 5/5 in all limbs Extremities: Fluctuant swelling over the right elbow, along with erythema and tenderness to palpation. Data 06/29/25 22:27 06/29/25 22:27 Other Labs: Radiology Impressions Elbow X-Ray 06/29/25 22:22 IMPRESSION: Severe posterior soft tissue swelling, correlate for olecranon bursitis. Forearm X-Ray 06/29/25 22:41 IMPRESSION: Moderate posterior subcutaneous edema. 1 mm radiopaque foreign body located along the mid forearm subcutaneous fat, in the area of soft tissue swelling. Laboratory Results WBC 7.23 10^3/uL (3.29-11.43) 06/29/25 22:27 RBC 4.46 10^6/uL (3.85-5.65) 06/29/25 22:27 Hgb 13.20 g/dL (11.27-16.99) 06/29/25 22:27 Hct 38.8 % (37-53) 06/29/25: MCV 87.0 fl (82-101) 06/29/25: MCH 29.6 pg (27-33) 06/29/25: MCHC 34.0 g/dL (30-55) 06/29/25: RDW 13.2 % (12.1-15.1) 06/29/25: Plt Count 255 10^3/cmm (157-399) 06/29/25: MPV 8.7 fL (7.4-10.4) 06/29/25: Neut % (Auto) 67.8 % 06/29/25: Lymph % (Auto) 17.6 % 06/29/25: [place] % (Auto) 10.8 % 06/29/25: Eos % (Auto) 2.9 % 06/29/25: Baso % (Auto) 0.6 % 06/29/25 Neut # (Auto) 4.91 10^3/uL (1.8-7.7) 06/29/25: Lymph # (Auto) 1.3 10^3/uL (0.8-4.8) 06/29/25: [place] # (Auto) 0.8 10^3/uL (0.2-0.9) 06/29/25: Eos # (Auto) 0.2 10^3/uL (0.0-0.8) 06/29/25: Baso # (Auto) 0.0 10^3/uL (0.0-0.1) 06/29/25: Nucleated RBC % (auto) 0 % 06/29/25 Nucleated RBCs # 0.0 /100WBC 06/29/25: Sodium 139 mmol/L (136-145) 06/29/25: Potassium 3.6 mmol/L (3.5-5.1) 06/29/25: Chloride 103 mmol/L (98-107) 06/29/25: Carbon Dioxide 25 mmol/L (22-29) 06/29/25: Anion Gap 14.6 (5-19) 06/29/25: BUN 12 mg/dL (8-23) 06/29/25: Creatinine 1.0 mg/dL (0.7-1.2) 06/29/25 GFR Calculation 75.7 mL/min (90-130) L 06/29/25: Glucose 115 mg/dL (65-115) 06/29/25: Calculated Osmolality 289 mOsm/kg (285-295) 06/29/25: Lactic Acid 1.6 mmol/L (0.5-2.2) 06/29/25: Uric Acid 5.2 mg/dL (3.4-7.0) 06/29/25: Calcium 9.4 mg/dL (8.5-10.5) 06/29/25 Total Bilirubin 0.3 mg/dL (0.15-1.2) 06/29/25 AST 27 U/L (0-40) 06/29/25: ALT 40 U/L (0-41) 06/29/25: Alkaline Phosphatase 85 U/L (40-130) 06/29/25: C-Reactive Protein 56.5 mg/L (0.0-4.9) H 06/29/25 Total Protein 6.9 g/dL (6.6-8.7) 06/29/25: Albumin 3.9 g/dL (3.5-5.2) 06/29/25: Globulin 3.0 g/dL (1.3-4.6) 06/29/25: Urine Color Yellow (Yellow) 06/29/25 Urine Appearance Clear (CLEAR) 06/29/25: Urine pH 5.5 (5-7) 06/29/25 Ur Specific [place] 1.022 (1.005-1.030) 06/29/25 Urine Protein Negative (Negative) 06/29/25 Urine Glucose (UA) Negative (Normal) 06/29/25 Urine Ketones Negative (Negative) 06/29/25 Urine Blood Trace (Negative) A 06/29/25 Urine Nitrate Negative (Negative) 06/29/25: Urine Bilirubin Negative (Negative) 06/29/25: Urine Urobilinogen 1.0 mg/dL (Negative) 06/29/25: Ur Leukocyte Esterase Negative (Negative) 06/29/25: Urine RBC 0-2 /hpf (0-2) 06/29/25: Urine WBC 0-5 /hpf (0-5) 06/29/25: Ur Squamous Epith Cells 0-5 /hpf (0-5) 06/29/25: Amorphous Sediment Not Reportable 06/29/25: Urine Bacteria None seen /hpf (NONE) 06/29/25 Hyaline Casts 0.40 /lpf 06/29/25 A&P Assessment and plan 1. Cellulitis of right upper extremity: 2. Abscess of upper extremity: Plan: 64-year-old male currently admitted to the hospital with persisting right upper extremity cellulitis and abscess around the right elbow drained twice in the past week, failure to improve with oral antibiotics including Augmentin, Bactrim and clindamycin. He had additionally received a dose of ceftriaxone 1 g on 06/25/2025. Patient reports onset of symptoms was preceded by a potentially penetrating trauma described as a poke though patient did not see the offending agent. Constitutional symptoms of chills and sweats, no fever during course of admission. He has received Zosyn, vancomycin and clindamycin since being admitted overnight due to failure of oral antibiotic to control his infection. Per verbal report called into him, culture from the abscess aspirate taken at [facility] on Tuesday had shown MRSA. Susceptibility is not currently available. Culture data not available on the records obtained from but increased today. Will request again. Possibilities include persistence of a foreign body, persisting abscess, MRSA resistant to Bactrim and clindamycin, presence of bacteria other than MRSA such as Pseudomonas which would not respond to the above oral antibiotic regimen. Cellulitis is currently improving since hospital admission. Continues to be a fluctuant swelling over the right elbow. Plan: Discontinue clindamycin. Start cefepime 1 g IV every 8 hours and vancomycin Obtain CT imaging of the affected elbow to determine extent of tissue involvement and presence of any potential foreign body. Depending on the depth of infection pending cultures, we will determine discharge antibiotics and the duration of these antibiotics Check uric acid level and HbA1c. Will continue to follow PDMP PDMP Reviewed: Not Reviewed Coding Level of Care Code Acute Code for Chg Fwd Diagnoses Cellulitis of right upper extremity L03.113 Site of cellulitis: extremity Site of cellulitis of extremity: upper extremity Laterality: right Abscess of upper extremity L02.419
--- NOTE | 2025-06-30 14:41 | PHA.VACGOAL ---
Vancomycin Goal - Goal Vancomycin Goal:: 10-15 mg/L Vancomycin Indication:: SSTI - Therapy Current therapy:: Cefepime Day of therpy:: Day []of [] . Actual body weight (kg): 83.143 kg - Data Labs: WBC 7.23 10^3/uL (3.29-11.43) 06/29/25 22: RBC 4.46 10^6/uL (3.85-5.65) 06/29/25 22: Hgb 13.20 g/dL (11.27-16.99) 06/29/25 22: Hct 38.8 % (37-53) 06/29/25: MCV 87.0 fl (82-101) 06/29/25: MCH 29.6 pg (27-33) 06/29/25: MCHC 34.0 g/dL (30-55) 06/29/25 22: RDW 13.2 % (12.1-15.1) 06/29/25 22: Sodium 139 mmol/L (136-145) 06/29/25 22: Potassium 3.6 mmol/L (3.5-5.1) 06/29/25: Chloride 103 mmol/L (98-107) 06/29/25: Carbon Dioxide 25 mmol/L (22-29) 06/29/25 22: Anion Gap 14.6 (5-19) 06/29/25 22: BUN 12 mg/dL (8-23) 06/29/25 22: Creatinine 1.0 mg/dL (0.7-1.2) 06/29/25 22: GFR Calculation 75.7 mL/min (90-130) L 06/29/25 22:27 Treatment plan:: new consult Regimen:: New start vancomycin for Cellulitis. No prior vancomycin history found. Patient started on maintenance dose of 1250 mg q12h.
--- NOTE | 2025-06-30 14:42 | CTR_ITS ---
PROCEDURE INFORMATION: Exam: CT Right Upper Extremity With Contrast, Elbow Exam date and time: 06/30/2025 5:01 PM Age: 64 years old Clinical indication: Swelling and other: Assess for abscess, abscess over right elbow, drained x 2 as outpatient without TECHNIQUE: Imaging protocol: Computed tomography of the right upper extremity with contrast. Exam focused on the elbow. Total images: 560 Radiation optimization: All CT scans at this facility use at least one of these dose optimization techniques: automated exposure control; mA and/or kV adjustment per patient size (includes targeted exams where dose is matched to clinical indication); or iterative reconstruction. Contrast material: OMNI 350; Contrast volume: 100 ml; Contrast route: INTRAVENOUS (IV); COMPARISON: 1. CR (UP EXM, ) 06/29/2025 10:36 PM 2. CR (UP EXM, ) 06/29/2025 10:40 PM RADIATION DOSE METRICS: Total DLP (mGy-cm): 510.84 FINDINGS: Bones/joints: Right olecranon bursa poorly circumscribed oval low-density focus measuring 4.6 x 2.2 x 2.3 cm diameter (23 mL) presumably representing a fluid collection. (axial, series 5, image 59; sagittal, series 11, image 23). Elbow demonstrates mild degenerative osteoarthritis, accounting for small osteophytes at the olecranon articular margin, radial head articular margin and extensive subchondral cyst formation within the capitellum of the distal humerus. Enthesophyte spur arises from the lateral humeral epicondyle. No bony permeative or destructive change to suggest osteomyelitis. No acute displaced fracture, subluxation or dislocation. No intrinsic osseous abnormality identified. Moderate generalized degenerative changes of the vertebral column, including multilevel osteophytes, degenerative disc height loss, and facet arthrosis, consistent with patient age. Vasculature: No major vessel critical narrowing, occlusion, or aneurysm. Soft tissues: Right posterior elbow generalized soft tissue swelling. No manifestations of laceration, subcutaneous emphysema or unexpected retained soft tissue radiopaque foreign body. CT/CT elbow RT w con [id number] IMPRESSION: 1. Olecranon bursa low-density fluid collection of approximately 23 mL volume with adjacent generalized soft tissue swelling. Adventitial bursitis containing sterile fluid surrounded by extensive soft tissue edema cannot be readily differentiated from a developing infected fluid collection , or earliest manifestations of abscess. If abscess is clinically suspected, consider definitive clinical management with tissue/fluid sampling for culture and sensitivity and histology if clinically warranted. 2. No bony permeative or destructive change to suggest osteomyelitis. 3. Elbow osteoarthritis. 4. No acute displaced fracture, subluxation or dislocation. 5. Moderate age-appropriate degenerative spinal changes. And other chronic/non-acute findings as described above. COMMENTS: If symptoms persist or progress, follow-up nonurgent MRI could be considered.
[2025-06-30] MEDS: metoprolol succinate ER (24 HR) 25 mg Tablet PO (17:20)
[2025-07-01] MEDS: cefepime 1,000 mg SDV 1000 MG IVP ×3 (01:17→16:29)
[2025-07-01 04:00] VITALS: BP 120/72; PULSE 66; RESP 16; TEMP 36.7; O2SAT 94
[2025-07-01 04:25] LABS: Hematocrit 37.1 % (37-53); Hemoglobin 12.10 g/dL (11.27-16.99); Mean Corpuscular HGB Conc 32.6 g/dL (30-55); Mean Corpuscular Hemoglobin 29.6 pg (27-33); Mean Corpuscular Volume 90.7 fl (82-101); Nucleated Red Blood Cells % 0 %; Platelet Count 274 10^3/cmm (157-399); Red Blood Count 4.09 10^6/uL (3.85-5.65); White Blood Count 7.68 10^3/uL (3.29-11.43)
[2025-07-01 04:40] LABS: Alanine Aminotransferase 42 U/L (0-41); Albumin Level 3.6 g/dL (3.5-5.2); Alkaline Phosphatase 81 U/L (40-130); Anion Gap 13.5 (5-19); Aspartate Amino Transferase 23 U/L (0-40); Blood Urea Nitrogen 10 mg/dL (8-23); Calcium 9.0 mg/dL (8.5-10.5); Carbon Dioxide 27 mmol/L (22-29); Chloride 104 mmol/L (98-107); Globulin 2.2 g/dL (1.3-4.6); Glucose 103 mg/dL (65-115); Osmolality Calculated 289 mOsm/kg (285-295); Potassium 4.5 mmol/L (3.5-5.1); Sodium 140 mmol/L (136-145); Total Protein 5.8 g/dL (6.6-8.7)
[2025-07-01 04:45] LABS: Uric Acid 4.9 mg/dL (3.4-7.0)
[2025-07-01 04:47] LABS: Estmated Average Glucose 108; Hemoglobin A1C 5.4 % (4.0-6.0)
--- NOTE | 2025-07-01 07:22 | P.PN_ITS ---
Subjective 2 Subjective: Patient is a very pleasant 64-year-old male seen and examined at bedside on hospital rounds today. Patient sitting up in bedside chair stating that he continues to have swelling and pain in his right elbow but it is much improved over yesterday. Discussed with patient what orthopedic physician Dr. Bermeo and infectious disease physician Dr. Davis have decided on their plan of care forward. Patient verbalized understanding. Will continue current interventions inpatient with IV antibiotic therapy, pending decision whether we will do surgical interventions or just continue to monitor. Vital signs remained stable. WBC 7.68, overall labs look normal mildly elevated ALT 42. Reviewed CT scan. All questions and concerns addressed with the patient at bedside today. Vitals/I&O/Wt Last Vital Signs Temp 98.0 F 07/01/25 04:00 Pulse 66 07/01/25 04:00 Resp 16 07/01/25 04:00 BP 120/72 07/01/25 04:00 Pulse Ox 94 07/01/25 04:00 O2 Del Method Room Air 07/01/25 04:00 06/30/25 07/01/25 07/01/25 22:59 06:59 14:59 Intake Total 240 / 1270 250 / 1520 Output Total 550 / 550 Balance 240 / 1270 -300 / 970 Weight last 48 hrs Weight 85.474 kg Weight 83.143 kg Weight 81.647 kg Weight 81.647 kg Physical Exam 2 Const: COMMON NORMALS: no acute distress, patient oriented x3 and well nourished HENMT: COMMON NORMALS: normocephalic, Normal external nose present and moist oral mucous membranes HEAD & SCALP: normocephalic NOSE: Normal external nose present Eye: COMMON NORMALS: Equal, round and reactive pupils present PUPIL: Yes Equal, round and reactive pupils present Resp: COMMON NORMALS: normal respiratory effort and clear to auscultation bilaterally AUSCULTATION: clear to auscultation bilaterally Cardio: COMMON NORMALS: regular rate, regular rhythm, S1 normal heart sound present and S2 normal heart sound present RATE: regular rate RHYTHM: r egular rhythm HEART SOUNDS: S1 normal heart sound present and S2 normal heart sound present GI: COMMON NORMALS: Normal to inspection, nondistended, normoactive bowel sounds present Extremity: RIGHT UPPER EXTREMITY: Yes elbow joint (Edema and erythema, decreased range of motion) Neuro: COMMON NORMALS: patient oriented x3 and CN's II-XII intact bilaterally Psych: COMMON NORMALS: mental status grossly normal Skin: OTHER: Erythema and edema noted right forearm right elbow, Borders drawn, erythema within borders Data 07/01/25 03:43 07/01/25 03:43 A&P Assessment and plan 1. Cellulitis of right elbow: 2. Olecranon bursitis: 3. Obstructive sleep apnea: 4. Generalized anxiety disorder: 5. Hypertension: 6. GERD (gastroesophageal reflux disease): Plan: Cellulitis, right elbow Olecranon bursitis - WBC 7.23, C-reactive protein 56.5, pending blood culture x 2 - Will need outpatient fluid cultures (patient states +MRSA) - Was treated outpatient with oral Keflex, Bactrim, clindamycin - Given 1 dose IV vancomycin, Zosyn, clindamycin at time of admission - Greatly appreciate infectious disease consultation management with Dr. Davis who start the patient on IV cefepime and vancomycin managed by pharmacy - CT right elbow: Olecranon bursa low density fluid collection of approximately 23 mL volume with adjacent generalized soft tissue swelling. Adventitial bursitis containing sterile fluid surrounded by extensive soft tissue edema cannot be readily differentiated from a developing infection fluid collection or earliest manifestations of abscess. No bony permeative or destructive change to suggest osteomyelitis. Elbow osteoarthritis. No acute displaced fracture, subluxation or dislocation. Moderate age-appropriate degenerative spinal changes. - Greatly appreciate orthopedic surgical consultation management with Dr. Iverson - Multimodal pain control LAURYN - Supportive measures Anxiety/Depression - Continue home dosing Sertraline Hypertension Hyperlipidemia - Blood pressure 129/75 - Continue home dosing cardio-protective medications - Monitor GERD - Continue PPI DVT PPX: SCD's GI PPX: PPI Code Status: Allow Natural PDMP PDMP Reviewed: Not Reviewed Attestations 2 Medical Necessity Statement*: Will continue current interventions and patient crossing 2 midnights due to severity of illness due to spreading cellulitis and olecranon bursitis which requires continued IV antibiotic therapy, pending cultures, infectious disease and orthopedic surgical consultation. Coding Level of Care Code 31741 Diagnoses Cellulitis of right elbow L03.113 Olecranon bursitis M70.20 Obstructive sleep apnea G47.33 Generalized anxiety disorder F41.1 Hypertension I10 GERD (gastroesophageal reflux disease) K21.9
[2025-07-01 07:45] VITALS: BP 132/88; PULSE 59; RESP 17; TEMP 36.8; O2SAT 96
[2025-07-01 11:45] VITALS: BP 119/77; PULSE 68; RESP 18; TEMP 36.6; O2SAT 94
--- NOTE | 2025-07-01 12:00 | PM.PN ---
Subjective Subjective: ID progress note cellulitis nearly resolved, Swelling noted over elbow without significant change or improvement CT elbow perfromed yesterday showed a focal collection Further details obtained this morning from patient's outpatient physician Dr. Sadler. HE has undergone aspiration x 2 with recovery of pus on aspirate, cx has shown MSSA (not MRSA as previously reported by patient). no other organisms on outpatient cultures. Medications: Reviewed: Yes Vitals/I&O/Wt Last Vital Signs Temp 97.9 F 07/01/25 11:45 Pulse 68 07/01/25 11:45 Resp 18 07/01/25 11:45 BP 119/77 07/01/25 11:45 Pulse Ox 94 07/01/25 11:45 O2 Del Method Room Air 07/01/25 11:45 06/30/25 07/01/25 07/01/25 22:59 06:59 14:59 Intake Total 240 / 1270 250 / 1520 480 / 480 Output Total 550 / 550 Balance 240 / 1270 -300 / 970 480 / 480 Weight last 48 hrs Weight 85.474 kg Weight 83.143 kg Weight 81.647 kg Weight 81.647 kg Physical Exam Narrative: General: No acute distress, AO x3 HEENT: PERRLA, pupils bilaterally equal and reactive, pallors not present Neuro: No focal deficits, no facial deformity, AO x3, power 5/5 in all limbs Extremities: cellulitis nearly resolved. Persisting abscess over right elbow, overall appearing unchanged Data 07/01/25 03:43 07/01/25 03:43 Micro: Microbiology 06/29/25 22:37 Blood Culture - Preliminary Blood NEGATIVE TO DATE 06/29/25 22:27 Blood Culture - Preliminary Blood NEGATIVE TO DATE Other data: [address] [address] [address] Scan Report Signed Patient: Luis Sorensen Unit #: [id number] : 1960 Age/Sex: 64 / M ADM Date: 06/30/25 Loc: [facility] Room/Bed: 262-[address]: Christin Conde [employer] Ordering Provider/Ordering MD: Marcelle Davis MD Date of Service: 06/30/25 Procedure(s): CT elbow RT w con [id number] Accession Number(s): [id number] Report Number: [id number] PROCEDURE INFORMATION: Exam: CT Right Upper Extremity With Contrast, Elbow Exam date and time: 06/30/2025 5:01 PM Age: 64 years old Clinical indication: Swelling and other: Assess for abscess, abscess over right elbow, drained x 2 as outpatient without TECHNIQUE: Imaging protocol: Computed tomography of the right upper extremity with contrast. Exam focused on the elbow. Total images: 560 Radiation optimization: All CT scans at this facility use at least one of these dose optimization techniques: automated exposure control; mA and/or kV adjustment per patient size (includes targeted exams where dose is matched to clinical indication); or iterative reconstruction. Contrast material: OMNI 350; Contrast volume: 100 ml; Contrast route: INTRAVENOUS (IV); COMPARISON: 1. CR (UP EXM, ) 06/29/2025 10:36 PM 2. CR (UP EXM, ) 06/29/2025 10:40 PM RADIATION DOSE METRICS: Total DLP (mGy-cm): 510.84 FINDINGS: Bones/joints: Right olecranon bursa poorly circumscribed oval low-density focus measuring 4.6 x 2.2 x 2.3 cm diameter (23 mL) presumably representing a fluid collection. (axial, series 5, image 59; sagittal, series 11, image 23). Elbow demonstrates mild degenerative osteoarthritis, accounting for small osteophytes at the olecranon articular margin, radial head articular margin and extensive subchondral cyst formation within the capitellum of the distal humerus. Enthesophyte spur arises from the lateral humeral epicondyle. No bony permeative or destructive change to suggest osteomyelitis. No acute displaced fracture, subluxation or dislocation. No intrinsic osseous abnormality identified. Moderate generalized degenerative changes of the vertebral column, including multilevel osteophytes, degenerative disc height loss, and facet arthrosis, consistent with patient age. Vasculature: No major vessel critical narrowing, occlusion, or aneurysm. Soft tissues: Right posterior elbow generalized soft tissue swelling. No manifestations of laceration, subcutaneous emphysema or unexpected retained soft tissue radiopaque foreign body. CT/[place] con [id number] IMPRESSION: 1. Olecranon bursa low-density fluid collection of approximately 23 mL volume with adjacent generalized soft tissue swelling. Adventitial bursitis containing sterile fluid surrounded by extensive soft tissue edema cannot be readily differentiated from a developing infected fluid collection , or earliest manifestations of abscess. If abscess is clinically suspected, consider definitive clinical management with tissue/fluid sampling for culture and sensitivity and histology if clinically warranted. 2. No bony permeative or destructive change to suggest osteomyelitis. 3. Elbow osteoarthritis. 4. No acute displaced fracture, subluxation or dislocation. 5. Moderate age-appropriate degenerative spinal changes. And other chronic/non-acute findings as described above. COMMENTS: If symptoms persist or progress, follow-up nonurgent MRI could be considered. A&P Assessment and plan 1. Cellulitis of right upper extremity: 2. Abscess of upper extremity: Plan: 64-year-old male currently admitted to the hospital with persisting right upper extremity cellulitis and abscess around the right elbow drained twice in the past week, failure to improve with oral antibiotics including Augmentin, Bactrim and clindamycin. He had additionally received a dose of ceftriaxone 1 g on 06/25/2025. Patient reports onset of symptoms was preceded by a potentially penetrating trauma described as a poke though patient did not see the offending agent. Constitutional symptoms of chills and sweats, no fever during course of admission. He has received Zosyn, vancomycin and clindamycin since being admitted overnight due to failure of oral antibiotic to control his infection. Per verbal report called into him, culture from the abscess aspirate taken at [facility] on Tuesday had shown MRSA. Susceptibility is not currently available. Culture data not available on the records obtained from but increased today. Will request again. Possibilities include persistence of a foreign body, persisting abscess, MRSA resistant to Bactrim and clindamycin, presence of bacteria other than MRSA such as Pseudomonas which would not respond to the above oral antibiotic regimen. Cellulitis is currently improving since hospital admission. Continues to be a fluctuant swelling over the right elbow. Plan: Discontinue clindamycin. Start cefepime 1 g IV every 8 hours and vancomycin Obtain CT imaging of the affected elbow to determine extent of tissue involvement and presence of any potential foreign body. Depending on the depth of infection pending cultures, we will determine discharge antibiotics and the duration of these antibiotics Check uric acid level and HbA1c. Will continue to follow Jul 01, 2025 CT elbow taken yesterday showed Olecranon bursa low-density fluid collection of approximately 23 mL volume with adjacent generalized soft tissue swelling. Findings were discussed with Dr. Boateng from radiology today, complex fluid is noted in the collection, low enhancement may be related to partial treatment with po abx over the past week. Outpatient cx has shown MSSA per discussion with patient's PCP Dr. Sadler, sensitive to oxacillin, bactrim and clindamycin. Awaiting fax to us from [facility]. No foreign body noted. Given persistence of collection in spite of oral abx treatment and partial outpatient drainage, patient needs source control in addition to iv abx for optimal treatment. Will order IR drainage if feasbile to be drained under US guidance. gram stain and cx ordered here from collection. D/c Cefepime and vancomycin. Change to cefazolin 2 g iv every 8 hrs. Will follow PDMP PDMP Reviewed: Not Reviewed Attestations Medical Necessity Statement*: per admitting Coding Level of Care Code Acute Code for g Fwd Diagnoses Cellulitis of right upper extremity L03.113 Site of cellulitis: extremity Site of cellulitis of extremity: upper extremity Laterality: right Abscess of upper extremity L02.419
--- NOTE | 2025-07-01 12:06 | US_ITS ---
WS: [id number] Ultrasound-guided aspiration RIGHT elbow collection. HISTORY: Increasing size of a previously aspirated RIGHT elbow fluid collection. Sampling necessary. There is a complex fluid collection with thick wall centered overlying the olecranon. There is mobile fluid within this collection. No significant increased vascularity. Procedure, risks and complications explained to the patient. Consent is obtained. Under sterile conditions skin is injected with 1% buffered lidocaine. A 18-gauge needle is inserted into the collection. Aspirate is bloody and turbid in appearance. Approximately 12 cc are obtained without difficulty. Specimen is placed within a sterile cup for analysis as requested. US/US softtissue fl dr caldwell [id number] IMPRESSION: 1. Complex fluid collection aspirated from the RIGHT olecranon bursa. Specimen sent for analysis as requested. 2. No complications. Approximately 12 cc of turbid bloody fluid removed.
--- NOTE | 2025-07-01 13:33 | PC.NURSE ---
TIME OUT preformed by this nurse as 1333; wes Bah, and Dr. Boateng present in the room. Consent has been obtained. Procedure begin at 1335. Patient tolerated well. No complaints. Samples collected. Dressing applied by Dr. Boateng. Will continue to monitor.
[2025-07-01 15:58] VITALS: BP 114/72; PULSE 67; RESP 16; TEMP 36.7; O2SAT 95
[2025-07-01] MEDS: metoprolol succinate ER (24 HR) 25 mg Tablet PO (16:28)
--- NOTE | 2025-07-01 17:16 | P.PN_ITS ---
Subjective 2 Subjective: Patient is seen today in his room. His erythema is much improved. Tenderness has improved as well. He is able to flex and extend his elbow with minimal discomfort. Fluctuance is also diminished. At this point, we will continue without any surgical intervention, and this was discussed with Dr. Davis. She is considering CT-guided aspiration of a small collection of fluid visualized on the CT. The patient once again wishes to avoid surgical intervention if possible. Medications: Reviewed: Yes Medication Review Details: Received piperacillin/tazobactam and vancomycin overnight in the emergency room Thereafter received 1 dose of clindamycin Previously on Augmentin Bactrim and clindamycin. Vitals/I&O/Wt Last Vital Signs Temp 98.1 F 07/01/25 15:58 Pulse 67 07/01/25 15:58 Resp 16 07/01/25 15:58 BP 114/72 07/01/25 15:58 Pulse Ox 95 07/01/25 15:58 O2 Del Method Room Air 07/01/25 11:45 07/01/25 07/01/25 07/01/25 06:59 14:59 22:59 Intake Total 250 / 1520 840 / 840 250 / 1090 Output Total 550 / 550 Balance -300 / 970 840 / 840 250 / 1090 Weight last 48 hrs Weight 188 lb 7 oz Weight 183 lb 4.8 oz Weight 180 lb Weight 180 lb Physical Exam 2 Const: COMMON NORMALS: no acute distress, average body habitus, patient oriented x3 and alert GENERAL APPEARANCE: cooperative and comfortable O RIENTATION/CONSCIOUSNESS: Yes awake HENMT: COMMON NORMALS: normocephalic and atraumatic HEAD & SCALP: n ormocephalic and atraumatic Eye: GENERAL EYE: appearance normal, both eyes and all related structures Chest: COMMONS NORMALS: normal inspection of the chest Resp: COMMON NORMALS: normal respiratory effort EFFORT & INSPECTION: Yes able to speak in complete sentences and Yes symmetric chest movement Extremity: RIGHT UPPER EXTREMITY: Yes elbow joint (Swelling and erythema significantly decreased) Right elbow: Yes palpation (Minimal tenderness), Yes ROM (Improving) and Yes neurovascular exam (Intact distally) Neuro: COMMON NORMALS: patient oriented x3 SENSORIUM/ORIENTATION: Yes alert Psych: COMMON NORMALS: mental status grossly normal APPEARANCE: Yes grossly normal ATTITUDE: Yes calm and Yes engaged ATTENTION/CONCENTRATION: Yes attention grossly intact Skin: COMMON NORMALS: no rashes or lesions noted GENERAL SKIN EXAM: no rashes or lesions noted Data 07/01/25 03:43 07/01/25 03:43 Micro: Microbiology 07/01/25 Unknown Gram Stain - Final Elbow - Aspirate 06/29/25 22:37 Blood Culture - Preliminary Blood NEGATIVE TO DATE 06/29/25 22:27 Blood Culture - Preliminary Blood NEGATIVE TO DATE A&P Assessment and plan 1. Olecranon bursitis of right elbow: Patient has right elbow and forearm cellulitis with underlying bursitis. Patient CT demonstrated a small collection of fluid which has infectious disease worried about an abscess. They will see if interventional radiology can aspirate this area. The patient would like to avoid surgical intervention, and I am in agreement with him. He is improving very quickly on appropriate IV antibiotic therapies. Erythema is significantly diminished as is tenderness. There is still fluctuance of the olecranon bursa, but the size has significantly diminished as well. At this point no further imaging or surgical procedures are planned. 2. Cellulitis of right elbow: 3. Cellulitis of right upper extremity: PDMP PDMP Reviewed: Not Reviewed Attestations 2 Medical Necessity Statement*: Per specialist team Coding Level of Care Code Acute Code for [facility] Fwd Diagnoses Olecranon bursitis of right elbow M70.21 Laterality: right Cellulitis of right elbow L03.113 Cellulitis of right upper extremity L03.113 Laterality: right Site of cellulitis: extremity Site of cellulitis of extremity: upper extremity
[2025-07-01 20:00] VITALS: BP 130/77; PULSE 58; RESP 17; TEMP 36.7; O2SAT 96
[2025-07-01] MEDS: ceFAZolin 2,000 mg SDV 2000 MG IVP (22:54)
[2025-07-02] VITALS: BP 112/70; PULSE 60; RESP 17; TEMP 528.3; TEMP 983; O2SAT 97
[2025-07-02 03:49] VITALS: BP 128/79; PULSE 51; RESP 16; TEMP 36.4; O2SAT 96
[2025-07-02] MEDS: ceFAZolin 2,000 mg SDV 2000 MG IVP ×2 (06:08→13:24)
[2025-07-02 07:19] VITALS: BP 139/88; PULSE 60; RESP 17; TEMP 36.5; O2SAT 96
--- NOTE | 2025-07-02 07:30 | P.PN_ITS ---
Subjective 2 Subjective: Patient is a very pleasant 64-year-old male seen and examined at bedside on hospital rounds today. Patient sitting up in bedside chair stating that he has much improved pain in his right elbow, is still there, but redness is improved and he is able to to have better range of motion. Spoke with patient about need for continued IV antibiotic therapy. Patient is currently awaiting PICC line placement and outpatient antibiotics. This is the only barrier to discharge. Reviewed patient's labs, vital signs remained stable. Greatly appreciate infectious disease consultation with Dr. Davis and orthopedic surgical consultation with . No plans for surgical interventions. All questions and concerns addressed the patient bedside today. Vitals/I&O/Wt Last Vital Signs Temp 97.7 F 07/02/25 07:19 Pulse 60 07/02/25 07:19 Resp 17 07/02/25 07:19 BP 139/88 07/02/25 07:19 Pulse Ox 96 07/02/25 07:19 O2 Del Method Room Air 07/02/25 07:19 07/01/25 07/02/25 07/02/25 22:59 06:59 14:59 Intake Total 650 / 1490 Balance 650 / 1490 Weight last 48 hrs Weight 84.822 kg Weight 85.474 kg Physical Exam 2 Const: COMMON NORMALS: no acute distress, patient oriented x3 and well nourished HENMT: COMMON NORMALS: normocephalic, Normal external nose present and moist oral mucous membranes HEAD & SCALP: normocephalic NOSE: Normal external nose present Eye: COMMON NORMALS: Equal, round and reactive pupils present PUPIL: Yes Equal, round and reactive pupils present Resp: COMMON NORMALS: normal respiratory effort and clear to auscultation bilaterally AUSCULTATION: clear to auscultation bilaterally Cardio: COMMON NORMALS: regular rate, regular rhythm, S1 normal heart sound present and S2 normal heart sound present RATE: regular rate RHYTHM: r egular rhythm HEART SOUNDS: S1 normal heart sound present and S2 normal heart sound present GI: COMMON NORMALS: Normal to inspection, nondistended, normoactive bowel sounds present Extremity: RIGHT UPPER EXTREMITY: Yes elbow joint (Edema and erythema, decreased range of motion) Neuro: COMMON NORMALS: patient oriented x3 and CN's II-XII intact bilaterally Psych: COMMON NORMALS: mental status grossly normal Skin: OTHER: Erythema and edema noted right forearm right elbow, Borders drawn, erythema much improved within borders Data 07/02/25 08:09 07/02/25 08:09 Micro: Microbiology 07/01/25 Unknown Gram Stain - Final Elbow - Aspirate 06/29/25 22:37 Blood Culture - Preliminary Blood NEGATIVE TO DATE 06/29/25 22:27 Blood Culture - Preliminary Blood NEGATIVE TO DATE A&P Assessment and plan 1. Cellulitis of right elbow: 2. Olecranon bursitis: 3. Obstructive sleep apnea: 4. Generalized anxiety disorder: 5. Hypertension: 6. GERD (gastroesophageal reflux disease): Plan: Cellulitis, right elbow Olecranon bursitis - WBC 6.20, C-reactive protein 56.5 - Blood Culture x 2 NGTD - Will need outpatient fluid cultures (patient states +MRSA) - Was treated outpatient with oral Keflex, Bactrim, clindamycin - Given 1 dose IV vancomycin, Zosyn, clindamycin at time of admission, changed to cefepime and vancomycin x 1 day, adjusted with cultures by to Ancef 2g q8hr - Greatly appreciate infectious disease consultation management with Dr. Davis - s/p drainage of right elbow with IR , approx 12cc removed - Greatly appreciate orthopedic surgical consultation management with Dr. Iverson, jeff plans for surgical interventions - Multimodal pain control - Pending PICC line placement, discharge home to continued outpatient IV antibiotics per LAURYN - Supportive measures Anxiety/Depression - Continue home dosing Sertraline Hypertension Hyperlipidemia - Blood pressure 139/88 - Continue home dosing cardio-protective medications - Monitor GERD - Continue PPI DVT PPX: SCD's GI PPX: PPI Code Status: Allow Natural PDMP PDMP Reviewed: Not Reviewed Attestations 2 Medical Necessity Statement*: Will continue current interventions and patient crossing 2 midnights due to severity of illness due to spreading cellulitis and olecranon bursitis which requires continued IV antibiotic therapy, pending cultures, infectious disease and orthopedic surgical consultation. Discharge pending on PICC line placement and ability to obtain outpatient IV antibiotic therapy. Coding Level of Care Code 61364 Diagnoses Cellulitis of right elbow L03.113 Olecranon bursitis M70.20 Obstructive sleep apnea G47.33 Generalized anxiety disorder F41.1 Hypertension I10 GERD (gastroesophageal reflux disease) K21.9
[2025-07-02 08:19] LABS: Hematocrit 41.1 % (37-53); Hemoglobin 13.70 g/dL (11.27-16.99); Mean Corpuscular HGB Conc 33.3 g/dL (30-55); Mean Corpuscular Hemoglobin 29.8 pg (27-33); Mean Corpuscular Volume 89.5 fl (82-101); Nucleated Red Blood Cells % 0 %; Platelet Count 318 10^3/cmm (157-399); Red Blood Count 4.59 10^6/uL (3.85-5.65); White Blood Count 6.20 10^3/uL (3.29-11.43)
[2025-07-02 08:39] LABS: Alanine Aminotransferase 42 U/L (0-41); Albumin Level 3.9 g/dL (3.5-5.2); Alkaline Phosphatase 85 U/L (40-130); Anion Gap 18.1 (5-19); Aspartate Amino Transferase 22 U/L (0-40); Blood Urea Nitrogen 8 mg/dL (8-23); Calcium 9.2 mg/dL (8.5-10.5); Carbon Dioxide 23 mmol/L (22-29); Chloride 102 mmol/L (98-107); Globulin 3.3 g/dL (1.3-4.6); Glucose 124 mg/dL (65-115); Magnesium 2.3 mg/dL (1.7-2.3); Osmolality Calculated 288 mOsm/kg (285-295); Potassium 4.1 mmol/L (3.5-5.1); Sodium 139 mmol/L (136-145); Total Protein 7.2 g/dL (6.6-8.7)
--- NOTE | 2025-07-02 09:00 | PM.PN ---
Subjective Subjective: Infectious disease progress note. Status post IR guided ultrasound drainage yesterday. Cultures taken. Currently pending. Complex fluid collection was noted in the right olecranon bursa on ultrasound. Approximately 12 cc of turbid bloody fluid was removed. Cultures now available from [facility] confirm MSSA Medications: Reviewed: Yes Medication Review Details: Received piperacillin/tazobactam and vancomycin overnight in the emergency room Thereafter received 1 dose of clindamycin Previously on Augmentin Bactrim and clindamycin. Vitals/I&O/Wt Last Vital Signs Temp 97.7 F 07/02/25 07:19 Pulse 60 07/02/25 07:19 Resp 17 07/02/25 07:19 BP 139/88 07/02/25 07:19 Pulse Ox 96 07/02/25 07:19 O2 Del Method Room Air 07/02/25 07:19 07/01/25 07/02/25 07/02/25 22:59 06:59 14:59 Intake Total 650 / 1490 360 / 360 Balance 650 / 1490 360 / 360 Weight last 48 hrs Weight 84.822 kg Weight 85.474 kg Physical Exam Narrative: General: No acute distress, AO x3 HEENT: PERRLA, pupils bilaterally equal and reactive, pallors not present Neuro: No focal deficits, no facial deformity, AO x3, power 5/5 in all limbs EXT: Cellulitis over right upper extremity is now resolved.Fluctuant swelling over the right elbow improved compared to previously. Data 07/02/25 08:09 07/02/25 08:09 Micro: Microbiology 07/01/25 Unknown Gram Stain - Final Elbow - Aspirate 06/29/25 22:37 Blood Culture - Preliminary Blood NEGATIVE TO DATE 06/29/25 22:27 Blood Culture - Preliminary Blood NEGATIVE TO DATE A&P Assessment and plan 1. Cellulitis of right upper extremity: 2. Abscess of upper extremity: Plan: 64-year-old male currently admitted to the hospital with persisting right upper extremity cellulitis and abscess around the right elbow drained twice in the past week, failure to improve with oral antibiotics including Augmentin, Bactrim and clindamycin. He had additionally received a dose of ceftriaxone 1 g on 06/25/2025. Patient reports onset of symptoms was preceded by a potentially penetrating trauma described as a poke though patient did not see the offending agent. Constitutional symptoms of chills and sweats, no fever during course of admission. He has received Zosyn, vancomycin and clindamycin since being admitted overnight due to failure of oral antibiotic to control his infection. Per verbal report called into him, culture from the abscess aspirate taken at [facility] on Tuesday had shown MRSA. Susceptibility is not currently available. Culture data not available on the records obtained from but increased today. Will request again. Possibilities include persistence of a foreign body, persisting abscess, MRSA resistant to Bactrim and clindamycin, presence of bacteria other than MRSA such as Pseudomonas which would not respond to the above oral antibiotic regimen. Cellulitis is currently improving since hospital admission. Continues to be a fluctuant swelling over the right elbow. Plan: Discontinue clindamycin. Start cefepime 1 g IV every 8 hours and vancomycin Obtain CT imaging of the affected elbow to determine extent of tissue involvement and presence of any potential foreign body. Depending on the depth of infection pending cultures, we will determine discharge antibiotics and the duration of these antibiotics Check uric acid level and HbA1c. Will continue to follow Jul 01, 2025 CT elbow taken yesterday showed Olecranon bursa low-density fluid collection of approximately 23 mL volume with adjacent generalized soft tissue swelling. Findings were discussed with Dr. Boateng from radiology today, complex fluid is noted in the collection, low enhancement may be related to partial treatment with po abx over the past week. Outpatient cx has shown MSSA per discussion with patient's PCP Dr. Sadler, sensitive to oxacillin, bactrim and clindamycin. Awaiting fax to us from [facility]. No foreign body noted. Given persistence of collection in spite of oral abx treatment and partial outpatient drainage, patient needs source control in addition to iv abx for optimal treatment. Will order IR drainage if feasbile to be drained under US guidance. gram stain and cx ordered here from collection. D/c Cefepime and vancomycin. Change to cefazolin 2 g iv every 8 hrs. Will follow July 02, 2025 Status post IR drainage of olecranon complex fluid collection yesterday with recovery of 12 cc of turbid bloody fluid. Fluctuant swelling is currently improved, less erythematous however still present. Culture from this collection are currently pending. Outpatient cultures available from [facility] confirm MSSA. Discussed with Dr. Sadler that the the fluid is marked as synovial , it is not a joint aspirate. Collection was within the olecranon bursa. PICC line placement today. Recommend discharge with cefazolin 2 g IV every 8 hours for 14 days. Follow-up in infectious disease clinic on July 18, 2025. Would favor using IV cefazolin over oral course currently given failure of recent outpatient p.o. antibiotics and remaining fluid that will likely be best treated with iv course. Thank you for this consult. Please call with any further questions or concerns PDMP PDMP Reviewed: Not Reviewed Attestations Medical Necessity Statement*: Per admitting note Coding Level of Care Code Acute Code for [facility] Fwd Diagnoses Cellulitis of right upper extremity L03.113 Site of cellulitis: extremity Site of cellulitis of extremity: upper extremity Laterality: right Abscess of upper extremity L02.419
--- NOTE | 2025-07-02 09:44 | P.DS_ITS ---
Discharge Providers Date of Admission: 06/30/25 00:27 Date of Discharge: July 02, 2025 Attending Provider at Admission: Christine Meyer DO Attending Provider at Discharge: Christin Conde NP Primary Care Provider: PATRICIO Tran Diagnoses at Discharge Discharge Diagnosis 1. Cellulitis of right elbow: 2. Olecranon bursitis of right elbow: 3. Obstructive sleep apnea: 4. Generalized anxiety disorder: 5. Hypertension: 6. Gastroesophageal reflux disease, esophagitis presence not specified: Reason for Visit Reason for Visit: mrsa worse elbow swelling to wrist Brief History: Admission: The patient is a 64-year-old male who present chief complaint of pain of his right arm/right elbow which are possibly 5 days prior to hospitalization. He states originally he developed what appears to be a small scab on his right elbow. 4 days prior to hospitalization it appears that he underwent arthrocentesis. Patient was administered an IM antibiotic and also Augmentin which he states he has been compliant with. 3 days prior to hospitalization, he states that he underwent another arthrocentesis. He denies any inciting trauma or injury to his right elbow. He missed onset rigors, nausea, vomiting. He denies fever. He states that his right elbow is erythematous, warm to palpation, and tender to palpation with a currently rating 5 out of 10. He presents for further evaluation. Hospital Course Hospital Course Cellulitis, right elbow Olecranon bursitis - WBC 6.20, C-reactive protein 56.5 - Blood Culture x 2 NGTD - Will need outpatient fluid cultures (patient states +MRSA) - Was treated outpatient with oral Keflex, Bactrim, clindamycin - Given 1 dose IV vancomycin, Zosyn, clindamycin at time of admission, changed to cefepime and vancomycin x 1 day, adjusted with cultures by to Ancef 2g q8hr - Greatly appreciate infectious disease consultation management with Dr. Davis - s/p drainage of right elbow with IR , approx 12cc removed - Greatly appreciate orthopedic surgical consultation management with Dr. Iverson, jeff plans for surgical interventions - Multimodal pain control - Pending PICC line placement, discharge home to continued outpatient IV antibiotics per LAURYN - Supportive measures Anxiety/Depression - Continue home dosing Sertraline Hypertension Hyperlipidemia - Blood pressure 139/88 - Continue home dosing cardio-protective medications - Monitor GERD - Continue PPI Patient did very well overall with improved range of motion, erythema and edema in right elbow. White blood cell count within normal limits 6.20 at time of discharge. Blood cultures with no growth to date. Patient will continue to follow-up outpatient with Dr. Davis, discharge IV antibiotics with Ancef every 8 hours x 2 weeks-this will be adjusted by Dr. Davis based on culture results. PICC line placement and care coordinated with case management on discharge planning. Patient discharged in good stable condition, will follow-up with primary care provider in [address] to [address] Davis within 1 week. All questions and concerns addressed with the patient prior to discharge. Physical Exam Const: COMMON NORMALS: no acute distress, patient oriented x3 and well nourished HENMT: COMMON NORMALS: normocephalic, Normal external nose present and moist oral mucous membranes HEAD & SCALP: normocephalic NOSE: Normal external nose present Eye: COMMON NORMALS: Equal, round and reactive pupils present PUPIL: Yes Equal, round and reactive pupils present Resp: COMMON NORMALS: normal respiratory effort and clear to auscultation bilaterally AUSCULTATION: clear to auscultation bilaterally Cardio: COMMON NORMALS: regular rate, regular rhythm, S1 normal heart sound present and S2 normal heart sound present RATE: regular rate RHYTHM: regular rhythm HEART SOUNDS: S1 normal heart sound present and S2 normal heart sound present GI: COMMON NORMALS: Normal to inspection, nondistended, normoactive bowel sounds present Extremity: RIGHT UPPER EXTREMITY: Yes elbow joint (Edema and erythema, decreased range of motion) Neuro: COMMON NORMALS: patient oriented x3 and CN's II-XII intact bilaterally Psych: COMMON NORMALS: mental status grossly normal Skin: OTHER: Erythema and edema noted right forearm right elbow, Borders drawn, erythema much improved within borders Discharge Data Studies Completed and Pending Completed Studies During Hospitalization Category Date Time Status CT elbow RT w con [id number] Routine Cat Scan 06/30/25 14:42 Completed XR elbow RT min 3V* [id number] Stat Exams 06/29/25 22:22 Completed XR forearm RT 2V [id number] Stat Exams 06/29/25 22:41 Completed US guide soft tissue fluid drain by cath [US softtissue Ultrasound 07/01/25 12:[address] caldwell [id number]] Routine Pending at discharge Category Date Time Status Abscess Culture and Gram Stain Routine Lab 07/01/25 Results Blood Culture Stat Lab 06/29/25 22:37 Results Complete Blood Count w/Auto AM LABS Lab 07/03/25 07:25 Ordered Complete Blood Count w/Auto AM LABS Lab 07/04/25 07:25 Ordered Comprehensive Metabolic Panel AM LABS Lab 07/03/25 07:25 Ordered Comprehensive Metabolic Panel AM LABS Lab 07/04/25 07:25 Ordered Fungal Culture Hair/Skin/Nail Routine Lab 07/01/25 Received Magnesium AM LABS Lab 07/03/25 07:25 Ordered Radiology Impressions Elbow X-Ray 06/29/25 22:22 IMPRESSION: Severe posterior soft tissue swelling, correlate for olecranon bursitis. Forearm X-Ray 06/29/25 22:41 IMPRESSION: Moderate posterior subcutaneous edema. 1 mm radiopaque foreign body located along the mid forearm subcutaneous fat, in the area of soft tissue swelling. Elbow CT 06/30/25 14:42 IMPRESSION: 1. Olecranon bursa low-density fluid collection of approximately 23 mL volume with adjacent generalized soft tissue swelling. Adventitial bursitis containing sterile fluid surrounded by extensive soft tissue edema cannot be readily differentiated from a developing infected fluid collection , or earliest manifestations of abscess. If abscess is clinically suspected, consider definitive clinical management with tissue/fluid sampling for culture and sensitivity and histology if clinically warranted. 2. No bony permeative or destructive change to suggest osteomyelitis. 3. Elbow osteoarthritis. 4. No acute displaced fracture, subluxation or dislocation. 5. Moderate age-appropriate degenerative spinal changes. And other chronic/non-acute findings as described above. COMMENTS: If symptoms persist or progress, follow-up nonurgent MRI could be considered. Drainage Catheter Insertion 07/01/25 12:06 IMPRESSION: 1. Complex fluid collection aspirated from the RIGHT olecranon bursa. Specimen sent for analysis as requested. 2. No complications. Approximately 12 cc of turbid bloody fluid removed. Laboratory Results WBC 6.20 10^3/uL (3.29-11.43) 07/02/25 08:09 RBC 4.59 10^6/uL (3.85-5.65) 07/02/25 08:09 Hgb 13.70 g/dL (11.27-16.99) 07/02/25 08:09 Hct 41.1 % (37-53) 07/02/25 08:09 MCV 89.5 fl (82-101) 07/02/25 08:09 MCH 29.8 pg (27-33) 07/02/25 08:09 MCHC 33.3 g/dL (30-55) 07/02/25 08:09 RDW 13.2 % (12.1-15.1) 07/02/25 08:09 Plt Count 318 10^3/cmm (157-399) 07/02/25 08:09 MPV 8.7 fL (7.4-10.4) 07/02/25 08:09 Neut % (Auto) 66.4 % 07/02/25 08:09 Lymph % (Auto) 17.4 % 07/02/25 08:09 [place] % (Auto) 7.9 % 07/02/25 08:09 Eos % (Auto) 3.9 % 07/02/25 08:09 Baso % (Auto) 0.5 % 07/02/25 08:09 Neut # (Auto) 4.12 10^3/uL (1.8-7.7) 07/02/25 08:09 Lymph # (Auto) 1.1 10^3/uL (0.8-4.8) 07/02/25 08:09 [place] # (Auto) 0.5 10^3/uL (0.2-0.9) 07/02/25 08:09 Eos # (Auto) 0.2 10^3/uL (0.0-0.8) 07/02/25 08:09 Baso # (Auto) 0.0 10^3/uL (0.0-0.1) 07/02/25 08:09 Nucleated RBC % (auto) 0 % 07/02/25 08:09 Nucleated RBCs # 0.0 /100WBC 07/02/25 08:09 Sodium 139 mmol/L (136-145) 07/02/25 08:09 Potassium 4.1 mmol/L (3.5-5.1) 07/02/25 08:09 Chloride 102 mmol/L (98-107) 07/02/25 08:09 Carbon Dioxide 23 mmol/L (22-29) 07/02/25 08:09 Anion Gap 18.1 (5-19) 07/02/25 08:09 BUN 8 mg/dL (8-23) 07/02/25 08:09 Creatinine 0.9 mg/dL (0.7-1.2) 07/02/25 08:09 GFR Calculation 85.5 mL/min (90-130) L 07/02/25 08:09 Glucose 124 mg/dL (65-115) H 07/02/25 08:09 Estimat Average Glucose 108 07/01/25 03:43 Hemoglobin A1c 5.4 % (4.0-6.0) 07/01/25 03:43 Calculated Osmolality 288 mOsm/kg (285-295) 07/02/25 08:09 Lactic Acid 1.6 mmol/L (0.5-2.2) 06/29/25 22:27 Uric Acid 4.9 mg/dL (3.4-7.0) 07/01/25 03:43 Calcium 9.2 mg/dL (8.5-10.5) 07/02/25 08:09 Magnesium 2.3 mg/dL (1.7-2.3) 07/02/25 08:09 Total Bilirubin 0.2 mg/dL (0.15-1.2) 07/02/25 08:09 AST 22 U/L (0-40) 07/02/25 08:09 ALT 42 U/L (0-41) H 07/02/25 08:09 Alkaline Phosphatase 85 U/L (40-130) 07/02/25 08:09 Creatine Kinase 36 U/L (39-308) L 07/01/25 03:43 C-Reactive Protein 56.5 mg/L (0.0-4.9) H 06/29/25 22:27 Total Protein 7.2 g/dL (6.6-8.7) 07/02/25 08:09 Albumin 3.9 g/dL (3.5-5.2) 07/02/25 08:09 Globulin 3.3 g/dL (1.3-4.6) 07/02/25 08:09 Urine Color Yellow (Yellow) 06/29/25 22:27 Urine Appearance Clear (CLEAR) 06/29/25 22:27 Urine pH 5.5 (5-7) 06/29/25 22:27 Ur Specific [place] 1.022 (1.005-1.030) 06/29/25 22: Urine Protein Negative (Negative) 06/29/25 22: Urine Glucose (UA) Negative (Normal) 06/29/25 22: Urine Ketones Negative (Negative) 06/29/25 22: Urine Blood Trace (Negative) A 06/29/25 22: Urine Nitrate Negative (Negative) 06/29/25 22: Urine Bilirubin Negative (Negative) 06/29/25 22: Urine Urobilinogen 1.0 mg/dL (Negative) 06/29/25 22: Ur Leukocyte Esterase Negative (Negative) 06/29/25 22: Urine RBC 0-2 /hpf (0-2) 06/29/25 22: Urine WBC 0-5 /hpf (0-5) 06/29/25 22: Ur Squamous Epith Cells 0-5 /hpf (0-5) 06/29/25 22: Amorphous Sediment Not Reportable 06/29/25 22: Urine Bacteria None seen /hpf (NONE) 06/29/25 22: Hyaline Casts 0.40 /lpf 06/29/25 22: Vitals Last Vital Signs Temp 97.7 F 07/02/25 07:19 Pulse 60 07/02/25 07:19 Resp 17 07/02/25 07:19 BP 139/88 07/02/25 07:19 Pulse Ox 96 07/02/25 07:19 O2 Del Method Room Air 07/02/25 07:19 Discharge Plan Discharge Patient Disposition: Home Condition: Stable Prescriptions: New cefazolin 2 gram Recon Soln 2,000 mg IVP Q8H 14 Days Qty: 25 0RF Continued One-A-Day Men's Multivitamin 400-20-300 mcg tablet 1 tab PO DAILY aspirin 81 mg tablet,chewable 81 mg PO DAILY (DME) CPAP machine and supplies See Rx Instructions .Route .MEDSUPPLY Qty: 1 0RF Rx Instructions: 6-16mm pantoprazole 40 mg tablet,delayed release (DR/EC) 40 mg PO BID Qty: 180 0RF colesevelam 625 mg tablet 1,250 mg PO DAILY metoprolol succinate 25 mg tablet extended release 24 hr 25 mg PO QPM sertraline 50 mg tablet 50 mg PO DAILY ondansetron 8 mg tablet,disintegrating 8 mg PO TID PRN (Reason: Nausea And Vomiting) Discontinued amoxicillin-pot clavulanate 875-125 mg tablet 1 tab PO BID Qty: 14 0RF Discharge Order = DC NOW: Discharge Order (Routine); Ordered 07/02/25 Ordered By: Christin Conde Other Ambulatory Orders: Miscellaneous Procedure (Order) Location: None Selected Ordered By: Christin Conde Referrals: [facility] [Provider Group, Infectious Disease] - 07/18/25 10:00 am [facility] [Outside] Referral Note: This is the company providing your IV antibiotic. If you have any questions you can call [phone] [facility]. Ginna Iverson MD [Physician, Orthopedics] - 07/15/25 1:30 pm Daisy Rogers FNP [Primary Care Provider, [facility]] - 07/09/25 1:20 pm Discharge Diet: Cardiac Discharge Activity: Resume usual activity Patient Instructions: Cefazolin (By injection) (Cefazolina), Cellulitis (ED), Elbow Bursitis (ED), PICC (Peripherally Inserted Central Catheter) (GEN), Opioid Safety, Patient Portal & Florinda Instructions Discharge Attestations Time Spent in Discharge Care*: greater than 30 min Quality Metrics Clinical Quality Measures [ No reported AMI, CVA or VTE this stay] Coding Level of Care Code 12646 Diagnoses Cellulitis of right elbow L03.113 Olecranon bursitis of right elbow M70.21 Laterality: right Obstructive sleep apnea G47.33 Generalized anxiety disorder F41.1 Hypertension I10 Gastroesophageal reflux disease, esophagitis presence not specified K21.9 Esophagitis presence: esophagitis presence not specified
[2025-07-02 11:16] VITALS: BP 128/77; PULSE 60; RESP 17; TEMP 36.7; O2SAT 96
--- NOTE | 2025-07-02 12:00 | PICC.NOTE ---
Midline placed to left basilic vein. Referred to vascular access nurse for midline placement due to need for IV antibiotics x 2 weeks. Risks and benefits discussed and informed consent obtained from pt. Left arm assessed with left basilic vein measuring 5.0 mm, straight, and apparent best choice for placement. Using sterile technique and MST, left basilic vein accessed x 1 stick. Mid-arm circumference measured 10 cm from left AC 30 cm. Trimmed cath 11 cm with 1 cm external length noted. Line secured with stat-lock. Insertion site covered with Biopatch and TSM. Report given to charge nurse, YANIRA Skinner.
== END 2025-07-02 13:55 | disposition home or self-care (01) | DRG 558 ==
LOC: ER 06-30 00:13 → MEDSURG 06-30 00:42
PROVIDERS: Student in an Organized Health Care Education/Training Program; Admitting Provider Internal Medicine; Emergency Provider Physician Assistant; PCP Registered Nurse; Visit Provider Registered Nurse
DX: M70.21 Olecranon bursitis, right elbow (principal); L03.113 Cellulitis of right upper limb; L02.413 Cutaneous abscess of right upper limb; B95.62 Methicillin resistant Staphylococcus aureus infection as the cause of diseases classified elsewhere; K21.00 Gastro-esophageal reflux disease with esophagitis, without bleeding; G47.33 Obstructive sleep apnea (adult) (pediatric); F41.1 Generalized anxiety disorder; F32.A Depression, unspecified; M54.9 Dorsalgia, unspecified; G89.29 Other chronic pain; R51.9 Headache, unspecified; I10 Essential (primary) hypertension; Z79.82 Long term (current) use of aspirin; Z79.899 Other long term (current) drug therapy; Z88.8 Allergy status to other drugs, medicaments and biological substances; Z90.49 Acquired absence of other specified parts of digestive tract; Z87.891 Personal history of nicotine dependence
CPT/HCPCS: 10030; 36415; 36569; 73080; 73090; 73201; 80053; 81001; 82550; 83036; 83605; 83735; 84550; 85025; 86140; 87040; 87070; 87075; 87077; 87186; 87205; 93005; 96365; 96367; 96375; 99285; C1751; J0690; J0692; J2270; J2405; J2543; J3373; J3490; J7030; J9999

== ENCOUNTER → 2025-07-15 13:16 | Outpatient (BNVA) | payer OTHER, SELFPAY | PROVIDERS: PCP Registered Nurse; Visit Provider Specialist | DX: M70.21 Olecranon bursitis, right elbow (principal); M19.021 Primary osteoarthritis, right elbow | CPT/HCPCS: 73080 ==

== ENCOUNTER 2025-07-18 10:58 | Oncology outpatient (recurring) (ONCR) | payer OTHER, SELFPAY ==
[2025-07-18 11:34] LABS: Hematocrit 42.3 % (37-53); Hemoglobin 13.90 g/dL (11.27-16.99); Mean Corpuscular HGB Conc 32.9 g/dL (30-55); Mean Corpuscular Hemoglobin 28.6 pg (27-33); Mean Corpuscular Volume 87.0 fl (82-101); Nucleated Red Blood Cells % 0 %; Platelet Count 326 10^3/cmm (157-399); Red Blood Count 4.86 10^6/uL (3.85-5.65); White Blood Count 5.10 10^3/uL (3.29-11.43)
--- NOTE | 2025-07-18 11:35 | PC.NURSE ---
Received order to draw labs and change patients midline dressing. Dr. Davis came to infusion to change order. Pt is to have labs drawn and midline pulled. This nurse pulled pts midline from pts left upper arm. Catheter 11cm and intact. No redness or bleeding from site. Pressure dressing applied. Pt educated to apply pressure if bleeding noticed.
[2025-07-18 11:51] LABS: Alanine Aminotransferase < 5 U/L (0-41); Albumin Level 4.2 g/dL (3.5-5.2); Alkaline Phosphatase 97 U/L (40-130); Anion Gap 14.3 (5-19); Aspartate Amino Transferase 17 U/L (0-40); Blood Urea Nitrogen 12 mg/dL (8-23); Calcium 9.8 mg/dL (8.5-10.5); Carbon Dioxide 27 mmol/L (22-29); Chloride 101 mmol/L (98-107); Globulin 3.3 g/dL (1.3-4.6); Glucose 91 mg/dL (65-115); Osmolality Calculated 285 mOsm/kg (285-295); Potassium 4.3 mmol/L (3.5-5.1); Sodium 138 mmol/L (136-145); Total Protein 7.5 g/dL (6.6-8.7)
== END 2025-08-14 23:59 | disposition home or self-care (01) ==
LOC: ONCMED 11:00
PROVIDERS: Student in an Organized Health Care Education/Training Program; PCP Registered Nurse; Visit Provider Registered Nurse
DX: L02.419 Cutaneous abscess of limb, unspecified (principal)
CPT/HCPCS: 36415; 80053; 85025; 85651; 86140

== ENCOUNTER → 2025-07-22 10:52 | Outpatient (BNVA) | payer OTHER, SELFPAY | PROVIDERS: PCP Registered Nurse; Visit Provider Specialist | DX: M19.021 Primary osteoarthritis, right elbow (principal); L03.113 Cellulitis of right upper limb | CPT/HCPCS: 73080 ==